=== PATIENT | female | born 1965 | race Caucasian/White ===

== ENCOUNTER 2016-12-05 04:17 | Inpatient (IN) | payer BC ==
[~2016-12-05] VITALS: Ht 172.7 cm; Wt 72.8 kg
[2016-12-05] VITALS (8 sets, daily range): BP systolic 95–118; BP diastolic 57–73; PULSE 74–83; RESP 15–28; TEMP 97.7–98.5; O2SAT 93–98; Ht 172.7 cm; Wt 72.8 kg
[~2016-12-05 04:17] MED LIST: ACYC-1 PO; AMOX-351 PO; BUPR-51 PO; CITA40TA14 PO; ESTR-29 PO; ESZO3TAB39 PO; LACT1CAP73 PO; MELA3TAB30 PO; RIZA10TA16 PO; ZOLP-109 PO
--- NOTE | 2016-12-05 04:17 | NUR ---
[facility] BROUGHT 3 EMPTY PILL BOTTLES WITH THE THAT WERE IN THE HOME BY THE PT ACCORDING TO THE SISTER WHO WAS THE ONE TO FIND HER AND CALL 911. ESZOPICLONE 1MG BOTTLE THAT IS PRESCRIBED TO HER SPOUSE, MADELINE ORTEGA ZOLPIDEM 10MG BOTTLE PRESCRIBED TO HER ADVIL PM OTC BOTTLE UNKNOWN AMTS OF MEDS TAKE WHEN ASKED, PT STATES "I DIDN'T TAKE THAT MANY"
[2016-12-05] MEDS ORDERED: NORMAL SALINE 1,000 ML IV ONE (04:21)
--- OUTSIDE RECORDS SUMMARY | 2016-12-05 04:22 | XMS REPORT | Continuity of Care Document ---
Author Author [facility] Organization [facility] Address Unknown Phone Unavailable Allergies Medications Problems Procedures Results Encounters ACCT No. Visit Date/Time Discharge Status Pt. Type Provider Facility Loc./Unit Complaint [id number] 11/01/2013 14:24:00 11/01/2013 23 :59:59 CLS Outpatient [id number] 07/02/2013 13:28:00 07/02/2013 23 :59:59 CLS Outpatient [id number] 05/29/2013 08:36:00 05/29/2013 23 :59:59 CLS Outpatient
--- OUTSIDE RECORDS SUMMARY | 2016-12-05 04:22 | XMS REPORT | Referral Summary ---
Author Author [facility] Organization [facility] Address Unknown Phone Unavailable Care Team Providers Care Food Quality Technician Name Role Phone Fco Griffin Primary Care Physician [phone] Encounter Date(s): 05/10/16 - 05/10/16 [facility] [address] [place] [address] Discharge Diagnosis: Insomnia Discharge Diagnosis: Dyslipidemia Discharge Diagnosis: Well adult exam Discharge Diagnosis: Depression Discharge Diagnosis: Post menopausal syndrome Discharge Disposition: 01-Home or Self Care Attending Physician: Neha Christiansen APRN Admitting Physician: Neha Christiansen APRN Vital Signs Most recent to 1 oldest [Reference Range]: Temperature Tympanic 36.7 degC [36.6-38.1 degC] (05/10/16 3:58 PM) Peripheral Pulse 84 bpm Rate [60-100 bpm] (05/10/16 3:58 PM) Blood Pressure 126/84 mmHg [90-140/60-90 mmHg] (05/10/16 3:58 PM) Problem List Condition Effective Dates Status Health Status Informant heavy 2008 - 07/22/14 Resolved flow(Confirmed) Depression(Confirmed Active ) Post menopausal Active syndrome(Confirmed) Seasonal Active allergies(Confirmed) Allergies, Adverse Reactions, Alerts Substance Reaction Severity Status codeine Nausea/Vomiting Active Medications acyclovir 400 mg oral tablet See Instructions, TAKE 1 TAB PO DAILY, # 30 Each, 0 Refill(s), Pharmacy: [facility] [id number], TAKE 1 TAB PO DAILY Start Date: 04/26/16 Status: Ordered Ambien 10 mg oral tablet 10 mg 1 tabs, Oral, Bedtime (once a day), as needed for sleep, [facility] NEEDS [facility] PRIOR TO ADDITIONAL FILLS, # 30 tabs, 0 Refill(s) Start Date: 04/26/16 Status: Ordered buPROPion 150 mg/24 hours (XL) oral tablet, extended release See Instructions, TAKE 1 TABLET BY MOUTH EVERY DAY, # 30 tabs, 5 Refill(s), eRx : [facility] [id number], TAKE 1 TABLET BY MOUTH EVERY DAY Start Date: 01/13/16 Status: Ordered citalopram 40 mg oral tablet See Instructions, TAKE 1 TABLET BY MOUTH DAILY, # 30 tabs, 5 Refill(s), eRx: [facility] [id number], TAKE 1 TABLET BY MOUTH DAILY Start Date: 01/01/16 Status: Ordered esterified estrogens-methylTESTOSTERone 1.25 mg-2.5 mg oral tablet 1 tabs, Oral, Daily, [facility], # 90 tabs, 1 Refill(s) Start Date: 03/22/16 Status: Ordered eszopiclone 3 mg oral tablet 3 mg 1 tabs, Oral, Bedtime (once a day), as needed for insomnia, [facility], # 15 tabs, 0 Refill(s) Start Date: 04/26/16 Status: Ordered rizatriptan 10 mg oral tablet See Instructions, TAKE 1 TABLET BY MOUTH AT ONSET MAY REPEAT AT 2 HOURS INTERVALS. DO NOT EXCEED 30MG IN 24 HOURS, # 15 tabs, eRx: [facility] [id number], TAKE 1 TABLET BY MOUTH AT ONSET MAY REPEAT AT 2 HOURS INTERVALS. DO NOT EXCEED 30MG IN 24 HOURS Start Date: 03/23/16 Status: Ordered Results No data available for this section Immunizations Vaccine Date Refusal Reason tetanus/diphth/pertuss (Tdap) adult/adol 11/13/15 influenza virus vaccine, inactivated 05/10/16 influenza virus vaccine, live 05/19/12 tetanus/diphtheria/pertussis, acel(Tdap) 12/31/11 Procedures Procedure Date Related Diagnosis Body Site Colonoscopy and biopsy of colon1 11/08/14 Appendectomy 1996 Abdominal hysterectomy 1Diverticulosis and external hemorrhoids present. Random biopsies negative for colitis. 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 Encouraged healthy diet and exercise more days of the week than not. Mammogram every 1-2 years. Discussed current Pap smear/pelvic exam guidelines. Patient not interested in pelvic exam today. No further Pap smears needed.. Labs: Fasting lipids and chemistrylater this week. Immunizations reviewed. Flu shot yearly. Given today by nursing. Colonoscopydue: 2024. DEXA scandue: Age 61. Recommend yearly wellness exams. Continue yearly skin surveys. We discussed ways to decrease stretching and neck strain which may decrease her headaches. Follow-up yearly or sooner as medical needs arise. 2.Dyslipidemia Encourage healthy eating and exercise. 3.Post menopausal syndrome Patient can try to decrease herhormone supplement to half a tablet daily. If she notes increased hot flashes/night sweats to go back to prior dosing. 4.Depression Currently well controlled with current regimen. Continue same. Insomnia Currently well controlled with current regimen. Continue same. Did discuss try to decrease her Ambien use to half a tablet or 5 nights per week. She is fairly hesitant to do this. Need for influenza vaccination
--- OUTSIDE RECORDS SUMMARY | 2016-12-05 04:22 | XMS REPORT | Continuity of Care Document ---
Author Author [facility] Organization [facility] Address Unknown Phone Unavailable Support Name Relationship Address Phone KAI ROMERO MD Caregiver [address] [place] [address] [place] [address] Unavailable CLARK PERSON MD Caregiver [address] [place] [id number] Unavailable CASEY WRIGHT MD Caregiver [address] [facility] [place] [address] Unavailable HONEY VO MD Caregiver [address] [place] [address] Unavailable MADELINE ORTEAG Next Of Kin [address] [place], [place] [id number] Insurance Providers Guarantor Hill Ortega Address [address] [place] [address] Email DENIED/NO TO PORTAL Payer [facility] Policy Number [id number] Subscriber's Name Hill Ortega Relationship 18 Self Group Number [id number] Advance Directives Directive Response Recorded Date/Time Ordered Resuscitation Status Full Code 05/16/16 12:50am Resuscitation Documents on File No 05/16/16 1:59am DPOA for Healthcare Only Yes 05/16/16 12:07pm Living Will No 05/16/16 1:59am Problems Active Problems Medical Problem Onset Date Status Alcohol use disorder, severe, dependence Unknown Chronic Depression Unknown Chronic Hypokalemia Unknown Resolved Major depression, recurrent Unknown Metabolic encephalopathy Unknown Overdose Unknown Acute Puncture wound of foot Unknown Acute Toxic encephalopathy Unknown Resolved Past Problems Medical Problem Onset Date Intentional overdose of drug in tablet form Unknown Medications Current Home Medications Medication Dose Units Route Directions Days Qty Instructions Start Date Acyclovir 400 Mg Tablet 400 Mg Oral Daily 08/09/08 Amoxicillin/Potassium Clav (Augmentin 875-125 Tablet) 1 Each Tablet 1 Tab Oral Twice A Day 7 Days TAKE WITH MEALS 11/13/15 Bupropion Hcl (Bupropion Xl) 150 Mg Tab.er.24h 150 Mg Oral Daily 10/24/14 Citalopram Hydrobromide (Celexa) 40 Mg Tablet 40 Mg Oral Daily Estrogen,Pema/Me-Testosterone (Estrogen-Methyltestosterone Tb) 1 Each Tablet 1 Tab Oral Daily 10/24/14 Eszopiclone Unknown Strength Tablet 3 Mg Oral Bedtime as needed for Insomnia 05/16/16 Lactobacillus Combination No.4 (Probiotic) 1 Each Capsule 1 Cap Oral Daily 11/08/14 Melatonin 3 Mg Tablet 1 Tab Oral Bedtime 30 Tablet 05/16/16 Rizatriptan Benzoate (Maxalt) 10 Mg Tablet 10 Mg Oral As Directed as needed for Migraine Headache 08/09/08 Zolpidem Tartrate (Ambien) 10 Mg Tablet 10 Mg Oral Bedtime Social History Social History Problem Response Recorded Date/Time Onset Date Status Reason for Hospitalization Overdose of multiple medications 05/17/2016 4: 05pm Not Applicable Not Applicable Chewing Tobacco Status No 05/16/2016 12:02am Not Applicable Not Applicable Hx Substance Use No 05/16/2016 12:02am Not Applicable Not Applicable Hx Alcohol Use Yes 05/16/2016 12:02am Not Applicable Not Applicable Has the pt used tobacco in the last 12 months No 05/16/2016 2:12am Not Applicable Not Applicable Query Response Start Date Stop Date Smoking Status Current some day smoker Hospital Discharge Instructions Instructions: Care Instructions: I was in the hospital because (patient own words): Pt unable to be aroused Discharge Diet: Regular Discharge Activity: As tolerated Follow Up Appointments: Dr Sinha to follow at [place] Pending Lab / Results: No Pending Lab Wound/Incision Care: n/a Pain Management/Treatment: n/a Expected Signs/Symptoms: Improvement to psychiatric state Notify Physician If: Fevers, chills, nausea, vomiting During Business Hours:: N/A - going to inpatient treatment After Business Hours:: n/a - going to inpatient treatment Condition at time of discharge: Good Plan of Care Discharge Date 05/17/16 5:00pm Disposition 65 TO PSYCH HOSP/UNIT Instructions/Education Provided DI for Suicidal Ideation-Adult Prescriptions See Medication Section Care Plan and Goals See Discharge Instructions Section Functional Status Query Response Date Recorded Mobility Status Ambulatory May 17, 2016 4:05pm Assistive Devices None May 17, 2016 4:05pm Activity Limitations Weakness May 17, 2016 4:05pm Feeding Ability Independent May 17, 2016 4:05pm Toileting Ability Independent May 17, 2016 4:05pm Grooming Ability Independent May 17, 2016 4:05pm Dressing Ability Independent May 17, 2016 4:05pm Driving Ability Independent May 17, 2016 4:05pm Housework Ability Independent May 17, 2016 4:05pm Meal Preparation Ability Independent May 17, 2016 4:05pm Stair Climbing Ability Independent May 17, 2016 4:05pm Ability to complete ADL's impeded by Change in Behavior May 17, 2016 4:05pm Cognitive/Perceptual Impairments Acute confusion May 17, 2016 4:05pm Allergies, Adverse Reactions, Alerts Allergen Type Severity Reaction Status Last Updated Codeine Adverse Reaction Mild N/V Active 05/16/16 Immunizations Query Response on File Recorded Date/Time Hx Influenza Vaccination Y April 2016 05/16/16 2:12am Hx Pneumococcal Vaccination No 05/16/16 2:12am Hx Influenza Vaccination Y April 2016 05/16/16 2:12am Tdap Vaccine Hx 11/13/15 11/13/15 10:48pm Vital Signs Acute Vital Signs Vital Response Date/Time Temperature (Fahrenheit) 98.7 deg F (96.8 - 99.1) 05/17/2016 3:12pm Temperature (Calculated Celsius) 37.55404 degrees C (36.0 - 37.3) 05/17/2016 3:12pm Pulse Rate (adult) 60 bpm (60 - 100) 05/17/2016 3:12pm Respiratory Rate 20 breaths/min (10 - 20) 05/17/2016 3:12pm O2 Sat by Pulse Oximetry 97 % (90 - 100) 05/17/2016 3:12pm Oxygen Delivery Method Nasal Cannula 05/16/2016 5:01pm Oxygen Delivery Method Room Air 05/17/2016 3:12pm Oxygen Flow Rate 1.00 L/min 05/16/2016 6:00am Blood Pressure 146/92 mm Hg 05/17/2016 3:12pm Blood Pressure Source Automatic Cuff 05/17/2016 3:12pm Height (Feet) 5 feet 05/17/2016 3:36pm Height (Inches) 8.00 inches 05/17/2016 3:36pm Weight (Kilograms) 70.700 kg 05/17/2016 9:49am Body Mass Index (BMI) 25.7 05/16/2016 1:59am Results Laboratory Results Test Name Result Units Flags Reference Collection Date/Time Result Date/ Time Comments White Blood Count 8.4 T/MM3 4.5-11.0 05/17/2016 12:45pm 05/17/2016 1: 17pm Red Blood Count 5.03 M/MM3 4.00-5.20 05/17/2016 12:45pm 05/17/2016 1: 17pm Hemoglobin 16.0 GM/DL D 12-16 05/17/2016 12:45pm 05/17/2016 1:17pm Hematocrit 46.9 % H 36-46 05/17/2016 12:45pm 05/17/2016 1:17pm Mean Corpuscular Volume 93.2 UM3 80-100 05/17/2016 12:45pm 05/17/2016 1 :17pm Mean Corpuscular Hemoglobin 31.8 UUG 26-34 05/17/2016 12:45pm 2015 1:17pm Mean Corpuscular Hemoglobin Concent 34.1 GM/DL 31-37 05/17/2016 12:45pm 05/17/2016 1:17pm RDW Standard Deviation 43.2 FL 36.9-50.2 05/17/2016 12:45pm 05/17/2016 1:17pm Platelet Count 199 T/MM3 130-400 05/17/2016 12:45pm 05/17/2016 1:17pm Mean Platelet Volume 10.8 UM3 9.4-12.4 05/17/2016 12:45pm 05/17/2016 1: 17pm Neutrophils (%) (Auto) 76.0 % H 33-66 05/17/2016 12:45pm 05/17/2016 1: 17pm Lymphocytes (%) (Auto) 15.3 % L 23-45 05/17/2016 12:45pm 05/17/2016 1: 17pm Monocytes (%) (Auto) 6.9 % 0-9.0 05/17/2016 12:45pm 05/17/2016 1:17pm Eosinophils (%) (Auto) 1.3 % 0-4 05/17/2016 12:45pm 05/17/2016 1:17pm Basophils (%) (Auto) 0.4 % 0-2 05/17/2016 12:45pm 05/17/2016 1:17pm Immature Granulocyte % (Auto) 0.1 % 0.0-0.5 05/17/2016 12:45pm 2015 1:17pm Absolute Neutrophils (auto) 6.4 T/MM3 1.8-7.7 05/17/2016 12:45pm 2015 1:17pm Absolute Lymphocytes (auto) 1.3 T/MM3 1-4.8 05/17/2016 12:45pm 2015 1:17pm Absolute Monocytes (auto) 0.6 T/MM3 0-0.8 05/17/2016 12:45pm 2015 1:17pm Absolute Eosinophils (auto) 0.1 T/MM3 0-0.5 05/17/2016 12:45pm 2015 1:17pm Absolute Basophils (auto) 0.0 T/MM3 0-0.2 05/17/2016 12:45pm 2015 1:17pm Absolute Immature Granulocyte (auto 0.01 T/MM3 0.00-0.03 05/17/2016 12: 45pm 05/17/2016 1:17pm Icterus Index < 2 0-7 05/17/2016 12:45pm 05/17/2016 1:05pm Chemistry Specimen Hemolysis < 15 0-25 05/17/2016 12:45pm 05/17/2016 1:05pm 0-25: Specimen Exhibited No Hemolysis. Turbidity < 20 0-20 05/17/2016 12:45pm 05/17/2016 1:05pm Sodium Level 144 MEQ/L D 134-144 05/17/2016 12:45pm 05/17/2016 1:19pm Potassium Level 4.1 MEQ/L 3.6-5 05/17/2016 12:45pm 05/17/2016 1:05pm Chloride Level 107 MEQ/L 98-107 05/17/2016 12:45pm 05/17/2016 1:05pm Carbon Dioxide Level 20 MEQ/L L 22-30 05/17/2016 12:45pm 05/17/2016 1: 05pm Anion Gap 17 MEQ/L H 5-15 05/17/2016 12:45pm 05/17/2016 1:05pm Blood Urea Nitrogen 8.0 MG/DL 7-17 05/17/2016 12:45pm 05/17/2016 1: 05pm Creatinine 0.8 MG/DL 0.7-1.2 05/17/2016 12:45pm 05/17/2016 1:05pm BUN/Creatinine Ratio 10 RATIO 6-26 05/17/2016 12:45pm 05/17/2016 1: 05pm Glomerular Filtration Rate Calc 76 05/17/2016 12:45pm 05/17/2016 1: 05pm Glucose Level 108 MG/DL 65-110 05/17/2016 12:45pm 05/17/2016 1:05pm Calculated Osmolality 276 MOSM/KG 261-280 05/17/2016 12:45pm 2015 1:05pm Calcium Level 9.3 MG/DL 8.4-10.2 05/17/2016 12:45pm 05/17/2016 1:05pm Total Bilirubin 0.80 MG/DL 0.20-1.30 05/16/2016 12:02pm 05/16/2016 12: 23pm Alkaline Phosphatase 60 U/L 38-126 05/16/2016 12:02pm 05/16/2016 12: 23pm Total Protein 6.9 G/DL 6.3-8.2 05/16/2016 12:02pm 05/16/2016 12:23pm Albumin 4.1 G/DL 3.5-5.0 05/16/2016 12:02pm 05/16/2016 12:23pm Globulin 2.8 G/DL 2.4-3.6 05/16/2016 12:02pm 05/16/2016 12:23pm Albumin/Globulin Ratio 1.5 RATIO 1.1-2.2 05/16/2016 12:02pm 05/16/2016 12:23pm Aspartate Amino Transf (AST/SGOT) 24 U/L 14-36 05/16/2016 12:02pm 05/16 12:23pm Alanine Aminotransferase (ALT/SGPT) 37 U/L 9-52 05/16/2016 12:02pm 04/2016 12:23pm Acetaminophen Level < 10 UG/ML L 06-0605/15/2016 11:30pm 05/16/2016 12: 13am TOXIC <4 HR POST INGESTION: >150 MG/L; TOXIC <12 HR POST INGESTION: >50 MG/L Salicylates Level < 1.0 MG/DL L -05/15/2016 11:30pm 05/16/2016 12: 13am Alcohol, Quantitative <10 MG/DL <10 05/16/2016 12:02pm 05/16/2016 12: 23pm Thyroid Stimulating Hormone (TSH) 0.45 MIU/L L 0.47-4.68 05/16/2016 12: 02pm 05/16/2016 2:41pm Urine Collection Type STRAIGHT CATH 05/16/2016 12:12am 05/16/2016 12:20am Urine Color YELLOW YELLOW 05/16/2016 12:12am 05/16/2016 12:20am Urine Turbidity CLEAR CLEAR 05/16/2016 12:12am 05/16/2016 12:20am Urine Specific [place] <=1.005 L 1.015-1.025 05/16/2016 12:12am 2015 12:20am Urine pH 5.5 5.0-8.0 05/16/2016 12:12am 05/16/2016 12:20am Urine Leukocyte Esterase NEGATIVE NEGATIVE 05/16/2016 12:12am 2015 12:20am Urine Nitrite NEGATIVE NEGATIVE 05/16/2016 12:12am 05/16/2016 12: 20am Urine Protein NEGATIVE NEGATIVE 05/16/2016 12:12am 05/16/2016 12: 20am Urine Glucose (UA) NEGATIVE NEGATIVE 05/16/2016 12:12am 05/16/2016 12 :20am Urine Ketones NEGATIVE NEGATIVE 05/16/2016 12:12am 05/16/2016 12: 20am Urine Urobilinogen 0.2 EU/DL NORMAL 05/16/2016 12:12am 05/16/2016 12: 20am Urine Bilirubin NEGATIVE NEGATIVE 05/16/2016 12:12am 05/16/2016 12: 20am Urine Blood NEGATIVE NEGATIVE 05/16/2016 12:12am 05/16/2016 12:20am Urinalysis Comment MICROSCOPIC NOT IND. 05/16/2016 12:12am 2015 12:20am Glucometer 75 mg/dL 65-110 05/16/2016 12:06am 05/16/2016 12:25am Procedures No known history of procedures. Encounters Encounter Location Arrival/Admit Date Discharge/Depart Date Attending Provider Discharged Inpatient [facility] 05/16/16 12:46am 05/17/16 5:00pm KAI ROMERO MD
--- OUTSIDE RECORDS SUMMARY | 2016-12-05 04:22 | XMS REPORT | Continuity of Care Document ---
Author Author [facility] Organization [facility] Address Unknown Phone Unavailable Support Name Relationship Address Phone CLAY THORPE FACS, MD Caregiver [address] [place] [address] [place] [phone] HONEY VO MD Caregiver [address] [place] [address] [place] [phone] MADELINE ORTEGA Next Of Kin [address] [facility] [place] [address] Insurance Providers Payer Name Policy Number Subscriber Name Relationship [facility] [id number] Hill Ortega 18 Self Advance Directives Directive Response Recorded Date/Time Dr Horan Resuscitation Status Full Code 10/24/14 2:06pm Resuscitation Documents on File No 10/24/14 12:32pm Problems No known problems or medical conditions. Medications Medication Dose Route Sig Days/Qty Instructions Order Date Discontinued Date Status Acyclovir 400 Mg PO DAILY 08/09/08 Active Zolpidem Tartrate 10 Mg PO BEDTIME 08/09/08 Active Rizatriptan Benzoate 10 Mg PO DIRECTED PRN MIGRAINE HEADACHE 08/09 Active Bupropion HCl 150 Mg PO DAILY 10/24/14 Active Citalopram Hydrobromide 40 Mg PO DAILY 10/24/14 Active Estrogen,Pema/Me-Testosterone 1 Tab PO DAILY 10/24/14 Active Lactobacillus Combination No.4 1 Cap PO DAILY 11/08/14 Active Social History Social History Problem Response Recorded Date/Time Chewing Tobacco Status No 10/24/2014 12:28pm Hx Substance Use No 10/24/2014 12:28pm Hx Alcohol Use Y BEER 2 PER DAY 10/24/2014 12:28pm Has the pt used tobacco in the last 12 months No 10/24/2014 12:28pm Query Response Start Date Stop Date Smoking Status Never smoker Hospital Discharge Instructions No hospital discharge instructions. Plan of Care No plan of care. Functional Status No functional status results. Allergies, Adverse Reactions, Alerts Allergen Type Severity Reaction Status Last Updated Codeine Adverse Reaction Mild N/V Active 10/24/14 Immunizations Name Given Type Hx Influenza Vaccination No Historical Hx Pneumococcal Vaccination No Historical Hx Influenza Vaccination No Historical Vital Signs Acute Vital Signs Vital Response Date/Time Temperature (Fahrenheit) 97.3 deg F (96.8 - 99.1) Temperature (Calculated Celsius) 36.71396 degrees C (36.0 - 37.3) Temperature Source Temporal Pulse Rate (adult) 60 bpm (60 - 100) Respiratory Rate 18 breaths/min (10 - 20) O2 Sat by Pulse Oximetry 100 % (90 - 100) Oxygen Delivery Method Room Air Blood Pressure 122/76 mm Hg Blood Pressure Source Automatic Cuff Height 5 ft 4 in Weight 154 lb Body Mass Index 26.0 kg/m^2 Results Test Source Date Result Interp. Ref. Range Comments Basophils # (Auto) August 09, 2008 6:45am 0.1 T/MM3 N 0-0.2 COMMENT ADMIT AT 0600 Basophils (%) (Auto) August 09, 2008 6:45am 1.1 % N 0-2 COMMENT ADMIT AT 0600 Eosinophils # (Auto) August 09, 2008 6:45am 0.2 T/MM3 N 0-0.5 COMMENT ADMIT AT 0600 Eosinophils (%) (Auto) August 09, 2008 6:45am 3.4 % N 0-4 COMMENT ADMIT AT 0600 Hematocrit August 10, 2008 4:00pm 24.1 % L 36-46 Hemoglobin August 10, 2008 4:00pm 7.1 GM/DL L 12-16 Human Chorionic Gonadotropin, Qual August 09, 2008 6:45am Negative - Lymphocytes # (Auto) August 09, 2008 6:45am 2.0 T/MM3 N 1-4.8 COMMENT ADMIT AT 0600 Lymphocytes (%) (Auto) August 09, 2008 6:45am 35.5 % N 23-45 COMMENT ADMIT AT 0600 Mean Corpuscular Hemoglobin August 10, 2008 4:00pm 21.8 UUG L 26-34 Mean Corpuscular Hemoglobin Concent August 10, 2008 4:00pm 29.5 GM/DL L 31-37 Mean Corpuscular Volume August 10, 2008 4:00pm 74.2 UM3 L 80-100 Mean Platelet Volume August 10, 2008 4:00pm 10.0 UM3 N 7.4-10.4 Monocytes # (Auto) August 09, 2008 6:45am 0.7 T/MM3 N 0-0.8 COMMENT ADMIT AT 0600 Monocytes (%) (Auto) August 09, 2008 6:45am 12.1 % H 0-9.0 COMMENT ADMIT AT 0600 Neutrophils # (Auto) August 09, 2008 6:45am 2.6 T/MM3 N 1.8-7.7 COMMENT ADMIT AT 0600 Neutrophils (%) (Auto) August 09, 2008 6:45am 47.9 % N 33-66 COMMENT ADMIT AT 0600 Platelet Count August 10, 2008 4:00pm 160 T/MM3 N 130-400 RDW Standard Deviation August 10, 2008 4:00pm 49.9 FL N 36.9-50.2 Red Blood Count August 10, 2008 4:00pm 3.25 M/MM3 L 4.00-5.20 White Blood Count August 10, 2008 4:00pm 6.8 T/MM3 N 4.5-11.0 Procedures Procedure Status Date Provider(s) Colonoscopy with polypectomy and biopsy completed 11/08/14 CLAY THORPE MD, FACS, CWS Hemorrhoidectomy completed 11/08/14 CLAY THORPE MD, FACS, CWS
--- NOTE | 2016-12-05 04:25 | NUR ---
STATUS PT IS VERY SLEEPY BUT TRIES TO FOLLOW COMMANDS AND HELP STAFF WITH CHANGING INTO HOSPITAL GOWN AND POSITIONING. SAYS SHE KNOWS SHE IS IN [place], BUT SEVERAL TIMES SAYS "AM I HOME". SHE DENIES ANY PAIN. ASKED PT 3 TIMES IF SHE WAS TRYING TO HARM OR KILL HERSELF AND EACH TIME SHE SAID NO, SHE WAS JUST TRYING TO SLEEP
--- NOTE | 2016-12-05 04:34 | ERPDOC ---
Departure Disposition Decision Date: Dec 05, 2016 Disposition Decision Time: 05:13 Disposition: 02 TO [facility] Impression Impression Impression: Primary Impression: Overdose Encounter type: initial encounter Injury intent: undetermined intent Qualified Codes: T50.904A - Poisoning by unspecified drugs, medicaments and biological substances, undetermined, initial encounter Additional Impressions: Major depression, recurrent Active/Remission status: currently active Major depression episode severity: moderate Qualified Codes: F33.1 - Major depressive disorder, recurrent, moderate Alcohol use disorder, severe, dependence Severity: Moderate Condition: Stable Seen By: Physician only Referrals: HONEY VO MD (Family) Problems/Meds/Labs Reviewed?: Yes Medications reviewed and manag: Yes Follow up care ordered?: Yes Mental Status: Alert, Oriented HPI - Psychosocial General Stated Complaint: POSSIBLE OD Time Seen by MD: 04:21 Source: patient, family, police, EMS, EMS notes reviewed Exam Limitations: no limitations HPI - Psychosocial Initial Comments Patient is a 51-year-old female, prior history of hospitalization 05/23 for attempted suicide by taking zolpidem and Lunesta. Patient presents to the ER for possible overdose on zolpidem and Lunesta. Patient also has long history of alcohol abuse. Patient presents to the ER for evaluation of altered mental status somnolent, questionable sleeping pill overdose. Apparently patient got into fight with her marline, family has been unable to locate thinks she might have "left". Patient called sister and said that she just wanted to sleep and if anything happened to her it was her 's fault. They became concerned police were contacted and then EMS was called. Patient brought to the ER for evaluation on arrival patient is very somnolent but arousable and answers questions, when asked if she was trying to harm herself she states "no". Occurred At: home Allergies: Coded Allergies: codeine (Verified Adverse Reaction, Mild, N/V, 12/05/16) Past History Patient Surgical History hysterectomy Past Medical History Metabolic: hypercholesterolemia Psychological: alcohol abuse, depression, other (prior possible suicide attempt by pills, versus unintentional overdose) Surgical History General: appendix Reproductive/: hysterectomy Family History Family PMH: FOUND: other Vaccines Hx Influenza Vaccination: Yes (April 2016) Hx Pneumococcal Vaccination: No Social History Does patient use chewing tobac: No Second Hand Exposure: No Substance Use Type: does not use Alcohol Intake: daily Marital Status: Sexuality: male partner Housing: house Review of Systems Constitutional Constitutional: weakness, DENIES: appetite decrease, chills, dizziness, fever Eyes Vision: DENIES: double vision, loss of visual rdz ENMT Sinuses: DENIES: congestion Cardiovascular Cardiac: DENIES: chest pain, dyspnea on exertion Pulmonary Respiratory: DENIES: cough, dyspnea, sputum, tachypnea GI Upper Abdomen: DENIES: nausea, pain, vomiting Lower Abdomen: DENIES: constipation, diarrhea, pain General: DENIES: frequency, urgency Musculoskeletal General: DENIES: cramps, pain, weakness Integumentary Skin: DENIES: color change, itching, rash Neurological General: DENIES: change in strength, headache, numbness, weakness Psychiatric Psychiatric: depression, suicidal ideation/attempt, DENIES: nervousness Hematologic/Lymphatic Hematologic/Lymphatic: DENIES: anemia Physical Exam General General Nourishment: well nourished, well developed General Body Habitus: well groomed Vitals and Pain First Documented Vital Signs Date Time Temp Pulse Resp B/P Pulse Ox O2 Delivery O2 Flow Rate FiO2 12/05/16 04:17 97.9 69 14 100/71 95 Room Air Weight: Kilograms: Height (feet): 5 Height (inches): 8.00 Triage Pain Scale: RN VS reviewed by Provider: Yes Eyes (brief) Eyes Brief: found: EOMI, PERRL ENMT (brief) ENMT Brief: FOUND: mucosa moist, normal dentition, NOT FOUND: nasal erythema, pharnyx erythema, tonsillar deviation Neck (brief) Neck: NOT FOUND: adenopathy, spasm, tenderness Respiratory (brief) Respiratory: FOUND: clear all rdz, equal bilaterally, NOT FOUND: rales, wheezes Cardiovascular (brief) Cardiac: FOUND: regular rate, regular rhythm Capillary Refill: <2 sec Abdomen (brief) Abdominal Brief: FOUND: bowel normo active x4, soft, NOT FOUND: distended, tender Lymphatic (brief) Lymphatic Brief: NOT FOUND: adenopathy Musculoskeletal (brief) Musculoskeletal Brief: NOT FOUND: spasm, tenderness Integumentary (brief) Integumentary Brief: FOUND: dry, pink, warm, NOT FOUND: rash Neurologic (brief) Neurological Brief: FOUND: CN w/o gross def to obs, motor-no gross deficits, sensory-no gross deficits Psychiatric (brief) Psychiatric Brief: NOT FOUND: alert, oriented Differential Diagnoses Considering: Anxiety, Bipolar, Borderline PD, Delirium, Depression, Hypoglycemia, Alcohol Intoxication, Other Intoxication, Suicidal Attempt, Suicidal Gesture, Suicidal Ideation Progress Results/Orders Orders Procedure Category Date Status Time EKG EKG 12/05/16 Taken 04:21 Cmp - Comprehensive LAB 12/05/16 Complete Metabolic 04:21 Cbc W/Auto LAB 12/05/16 Complete Diff-Reflex Manual 04:21 Ethanol LAB 12/05/16 Complete 04:21 Magnesium LAB 12/05/16 Complete 04:21 Drug Screen LAB 12/05/16 Complete Urine-Test At [facility] [place] 04:21 Acetaminophen LAB 12/05/16 Complete 04:21 Salicylate LAB 12/05/16 Complete 04:21 Ua, Dip Wreflex LAB 12/05/16 Complete Microsc & Acute Care Physician 04:21 Lipase LAB 12/05/16 Complete 04:21 Iv Lock (Ed Only) EDM 12/05/16 Transmitted 04:21 Normal Saline (Normal PHA 12/05/16 Complete Saline Iv) 04:21 Nothing By Mouth (Ed EDM 12/05/16 Transmitted Only) 04:21 Suicide Precautions [facility]ST 12/05/16 In Process 04:43 Place In Facility As: ADMIT 12/05/16 Transmitted 05:20 Measure Intake And [facility] 12/05/16 In Process Output 05:20 Elevate Hob [facility] 12/05/16 In Process Measure Vital Signs [facility] 12/05/16 In Process 05:20 Urinary Catheter [facility] 12/05/16 In Process Insert/Manage 05:20 Monitor Pulse Oximetry [facility] 12/05/16 In Process 05:20 Manage Oxygen [facility] 12/05/16 In Process Administration 05:20 Incentive Spirometry RT 12/05/16 Logged 05:20 Manage Incentive [facility] 12/05/16 In Process Spirometer 05:20 Normal Saline (Normal PHA 12/05/16 Logged Saline Iv) 05:20 Heparin (Heparin PHA 12/05/16 Logged Sub-Q) 09:00 Npo: Nothing By Mouth DIET 12/05/16 Transmitted Breakfast Bedrest With Brp [facility] 12/05/16 In Process 05:20 Ondansetron Inj PHA 12/05/16 Logged (Zofran) 05:30 Catheter Needs [facility]ST 12/06/16 In Process Assessment 06:00 Oxygen, Continuous RT 12/05/16 Logged 05:20 Manage Incentive [facility]ST 12/05/16 In Process Spirometer 16:00 Incentive Spirometry RT 12/05/16 Logged 05:20 Lab Results Laboratory Tests Test 12/05/16 04:36 White Blood Count 5.5T/MM3 Red Blood Count 5.32M/MM3 Hemoglobin 16.5GM/DL Hematocrit 49.4% Mean Corpuscular Volume 92.9UM3 Mean Corpuscular Hemoglobin 31.0UUG Mean Corpuscular Hemoglobin Concent 33.4GM/DL RDW Standard Deviation 45.7FL Platelet Count 226T/MM3 Mean Platelet Volume 10.7UM3 Immature Granulocyte % (Auto) 0.2% Neutrophils (%) (Auto) 39.8% Lymphocytes (%) (Auto) 47.9% Monocytes (%) (Auto) 7.7% Eosinophils (%) (Auto) 3.5% Basophils (%) (Auto) 0.9% Absolute Immature Granulocyte (auto 0.01T/MM3 Absolute Neutrophils (auto) 2.2T/MM3 Absolute Lymphocytes (auto) 2.6T/MM3 Absolute Monocytes (auto) 0.4T/MM3 Absolute Eosinophils (auto) 0.2T/MM3 Absolute Basophils (auto) 0.1T/MM3 Urine Collection Type Voided-not cc-midstr Urine Color Yellow Urine Turbidity Clear Urine pH 5.5 Urine Specific [place] <=1.005 Urine Protein Negative Urine Glucose (UA) Negative Urine Ketones Negative Urine Blood Negative Urine Nitrite Negative Urine Bilirubin Negative Urine Urobilinogen 0.2EU/DL Urine Leukocyte Esterase Negative Urinalysis Comment Microscopic not ind. Turbidity < 20 Sodium Level 148MEQ/L Potassium Level 3.8MEQ/L Chloride Level 105MEQ/L Carbon Dioxide Level 25MEQ/L Anion Gap 18MEQ/L Blood Urea Nitrogen 4.0MG/DL Creatinine 0.8MG/DL Glomerular Filtration Rate Calc 76 BUN/Creatinine Ratio 5RATIO Glucose Level 80MG/DL Calculated Osmolality 280MOSM/KG Calcium Level 9.2MG/DL Magnesium Level 2.3MG/DL Total Bilirubin 0.70MG/DL Icterus Index < 2 Aspartate Amino Transf (AST/SGOT) 37U/L Alanine Aminotransferase (ALT/SGPT) 48U/L Alkaline Phosphatase 66U/L Total Protein 8.0G/DL Albumin 4.8G/DL Globulin 3.2G/DL Albumin/Globulin Ratio 1.5RATIO Lipase 107U/L Chemistry Specimen Hemolysis < 15 Salicylates Level < 1.0MG/DL Urine Opiates Screen NegativeNG/ML Urine Oxycodone Screen NegativeNG/ML Urine Methadone Screen NegativeNG/ML Urine Propoxyphene Screen NegativeNG/ML Acetaminophen Level < 10UG/ML Urine Barbiturates Screen NegativeNG/ML Urine Tricyclic Antidepressants NegativeNG/ML Urine Phencyclidine Screen NegativeNG/ML Urine Amphetamines Screen NegativeNG/ML Urine Methamphetamines Screen NegativeNG/ML Urine Benzodiazepines Screen NegativeNG/ML Urine Cocaine Screen NegativeNG/ML Urine Cannabinoids Screen NegativeNG/ML Alcohol, Quantitative 177MG/DL Medications Current ED Medications Sodium Chloride 1,000 ml @ 1,000 mls/hr Q1H ONCE IV Last administered on t 04:49; Start 12/05/16 at 04:21; Stop 12/05/16 at 05:20; Status DC Sodium Chloride (Normal Saline IV) 1,000 ml @ 100 mls/hr Q10H IV ; Start at 05:20; Status UNV Heparin Sodium (Porcine) (Heparin Sub-Q) 5,000 unit Q8HR SQ ; Start 12/05/16 at 09:00; Status UNV Ondansetron HCl (Zofran) 4 mg Q6H PRN IV NAUSEA; Start 12/05/16 at 05:30; Status UNV Progress Progress Discussed case with Dr. Nugent, we'll admit to the CCU suicide precautions intoxication possible overdose encephalopathy, patient will receive psych evaluation when appropriate EKG EKG : Rate: 60-100 Rhythm: sinus Priddy: normal QRS: normal Intervals: normal ST/T: non-specific changes Interpreted by: signing physician ANDRA CHARLES MD Dec 05, 2016 04:34
--- NOTE | 2016-12-05 04:40 | NUR ---
ST CATH FEM CATH USED TO OBTAIN URINE SPEC FOR UA AND UDS PT COOPERATIVE WITH PROCEDURE CARLINE CARE PROVIDED AND PT HELPED WITH GETTING BOTTOMS BACK ON
[2016-12-05 04:41] LABS: BASOPHILS # (AUTO) 0.1 T/MM3 (0-0.2); BASOPHILS % (AUTO) 0.9 % (0-2); EOSINOPHILS # (AUTO) 0.2 T/MM3 (0-0.5); EOSINOPHILS % (AUTO) 3.5 % (0-4); HCT - HEMATOCRIT 49.4 % (36-46); HGB - HEMOGLOBIN 16.5 GM/DL (12-16); IMMATURE GRANULOCYTE # (AUTO) 0.01 T/MM3 (0.00-0.03); IMMATURE GRANULOCYTE % (AUTO) 0.2 % (0.0-0.5); LYMPHOCYTES # (AUTO) 2.6 T/MM3 (1-4.8); LYMPHOCYTES % (AUTO) 47.9 % (23-45); MEAN CORPUSCULAR HGB CONC(MCHC 33.4 GM/DL (31-37); MEAN CORPUSCULAR VOLUME 92.9 UM3 (80-100); MEAN PLATELET VOLUME 10.7 UM3 (9.4-12.4); MONOCYTES # (AUTO) 0.4 T/MM3 (0-0.8); MONOCYTES % (AUTO) 7.7 % (0-9.0); NEUTROPHILS #(AUTO)-ABSOLUTE 2.2 T/MM3 (1.8-7.7); NEUTROPHILS % (AUTO) 39.8 % (33-66); RED BLOOD COUNT 5.32 M/MM3 (4.00-5.20); WBC - WHITE BLOOD COUNT 5.5 T/MM3 (4.5-11.0)
--- NOTE | 2016-12-05 04:49 | NUR ---
IV FLUID #1 IV 1000CC NS STARTED AT 999CC/HR IV SITE WITHOUT REDNESS OR SWELLING
[2016-12-05 04:54] LABS: BLOOD, URINE NEGATIVE (NEGATIVE); COLOR,URINE YELLOW (YELLOW); LEUKOCYTE ESTERASE ,URINE NEGATIVE (NEGATIVE); NITRITE,URINE NEGATIVE (NEGATIVE); UROBILINOGEN,URINE 0.2 EU/DL (NORMAL)
[2016-12-05 04:58] LABS: ACETAMINOPHEN < 10 UG/ML (10-30); ALBUMIN 4.8 G/DL (3.5-5.0); ALBUMIN/GLOBULIN RATIO 1.5 RATIO (1.1-2.2); ALKALINE PHOSPHATASE 66 U/L (38-126); ALT (SGPT) 48 U/L (9-52); ANION GAP 18 MEQ/L (5-15); AST (SGOT) 37 U/L (14-36); BUN/CREATININE RATIO 5 RATIO (6-26); CALCIUM 9.2 MG/DL (8.4-10.2); CHLORIDE 105 MEQ/L (98-107); CO2 - CARBON DIOXIDE 25 MEQ/L (22-30); CREATININE 0.8 MG/DL (0.7-1.2); ETHANOL 177 MG/DL (<10); GLOMERULAR FILTRATION RATE 76; GLUCOSE 80 MG/DL (65-110); MAGNESIUM 2.3 MG/DL (1.6-2.3); POTASSIUM 3.8 MEQ/L (3.6-5); SALICYLATE < 1.0 MG/DL (2-20); SODIUM 148 MEQ/L (134-144)
[2016-12-05 05:05] LABS: AMPHETAMINE SCREEN,URINE NEGATIVE; BARBITURATE SCREEN,URINE NEGATIVE; METHAMPHETAMINE SCREEN, URINE NEGATIVE
[2016-12-05 05:06] LABS: BENZODIAZEPINES SCREEN,URINE NEGATIVE; CANNABINOID SCREEN,URINE NEGATIVE; COCAINE SCREEN,URINE NEGATIVE; METHADONE SCREEN, URINE NEGATIVE; OPIATE SCREEN,URINE NEGATIVE; PHENCYCLIDINE SCREEN,URINE NEGATIVE; TRICYCLIC ANTIDEPRESSANT,URINE NEGATIVE
[2016-12-05] MEDS ORDERED: IBUP1TAB79 PO (05:06)
--- OUTSIDE RECORDS SUMMARY | 2016-12-05 05:09 | XMS REPORT | Continuity of Care Document ---
Author Author [facility] Organization [facility] Address Unknown Phone Unavailable Support Name Relationship Address Phone CLAY THORPE FACS, MD Caregiver [address] [place] [address] [place] [phone] HONEY VO MD Caregiver [address] [place] [address] [place] [phone] MADELINE ORTEGA Next Of Kin [address] [place] [address] Insurance Providers Payer Name Policy Number Subscriber Name Relationship [facility] [id number] Hill Ortega 19 Self Advance Directives Directive [...] F (96.8 - 99.1) Temperature (Calculated Celsius) [phone] degrees C (36.0 - 37.3) Temperature Source [...]
--- OUTSIDE RECORDS SUMMARY | 2016-12-05 05:09 | XMS REPORT | Continuity of Care Document ---
Author Author [facility] Organization [facility] Address Unknown Phone Unavailable Allergies Medications Problems Procedures Results Encounters ACCT No. Visit Date/Time Discharge Status Pt. Type Provider Facility Loc./Unit Complaint [id number] 11/01/2013 14:24:00 11/01/2013 23 :59:59 CLS Outpatient [id number] 07/02/2013 13:28:00 07/02/2013 23 :59:59 CLS Outpatient [id number] 05/29/2013 08:36:00 05/29/2013 23 :59:59 CLS Outpatient
[2016-12-05 05:11] LABS: LIPASE 107 U/L (23-300)
[2016-12-05] MEDS ORDERED: NORMAL SALINE 1,000 ML IV SCH (05:20)
[2016-12-05] MEDS ORDERED: ONDANSETRON 4mg/2ml INJECTION IV PRN (05:30)
--- NOTE | 2016-12-05 05:31 | NUR ---
REPORT REPORT CALLED TO SUSAN ALLRED IN CCU
--- NOTE | 2016-12-05 05:40 | NUR ---
ADMIT PT TAKEN TO CCU ROOM 1 PER CART ESCORTED BY 2 RN'S PT FAMILY IN [facility], AWARE OF PT STATUS SISTER HAS PT'S CELL PHONE
--- NOTE | 2016-12-05 05:40 | NUR ---
ADMIT TO CCU-1 PER CART FROM ER. SLEEPY ABUT AWAKENS EASILY. ORIENTED BUT WANTS TO BE LEFT ALONE. TELEMED, DR SHAFFER, SAW PT. NO FAMILY HERE.
--- OUTSIDE RECORDS SUMMARY | 2016-12-05 05:51 | XMS REPORT | Continuity of Care Document ---
Author Author [facility] Organization [facility] Address Unknown Phone Unavailable Allergies Medications Problems Procedures Results Encounters ACCT No. Visit Date/Time Discharge Status Pt. Type Provider Facility Loc./Unit Complaint [id number] 11/01/2013 14:24:00 11/01/2013 23 :59:59 CLS Outpatient [id number] 07/02/2013 13:28:00 07/02/2013 23 :59:59 CLS Outpatient [id number] 05/29/2013 08:36:00 05/29/2013 23 :59:59 CLS Outpatient
--- OUTSIDE RECORDS SUMMARY | 2016-12-05 05:51 | XMS REPORT | Continuity of Care Document ---
Author Author [facility] Organization [facility] Address Unknown Phone Unavailable Support Name Relationship Address Phone CLAY THORPE FACS, MD Caregiver [address] [place] [address] [place] [phone] HONEY VO MD Caregiver [address] [place] [address] [place] [phone] MADELINE ORTEGA Next Of Kin [address] [facility] [place] [address] Insurance Providers Payer Name Policy Number Subscriber Name Relationship [facility] [id number] Hill Otrega 19 Self Advance Directives Directive Response Recorded [...] F (96.8 - 99.1) Temperature (Calculated Celsius) 36.50008 degrees C (36.0 - 37.3) Temperature Source [...]
--- NOTE | 2016-12-05 06:04 | HPPDOC ---
ANA SHAFFER MD 12/05/16 0559: HPI - Adult Date DATE: 12/05/16 TIME: 05:55 General Chief Complaint: altered History of Present Illness This is a 51-year-old female with a known history of depression. The patient has a long-standing history of alcohol abuse. The patient apparently was last admitted in May 2016 for a overdose of Ambien and/or Lunesta. The patient apparently got into an argument with her . He walked out. The sister contact the patient later on and found that she was less responsive. Prieto Howard was activated and evaluated the patient and activated EMS. The patient was transported to the emergency department for evaluation. It is not clear the exact time the patient adjusted the medication, but most likely less than 3 hours prior to arrival. The patient apparently has access to Lunesta and Ambien. There is a chance the patient took up to 10 tablets of Ambien and 5 tablets of Lunesta. The patient has been drinking today. In the emergency department the patients assessment was unremarkable. The patient is to be admitted to the ICU for medical stabilization prior to assessing need for psychiatric placement. Past Medical History Past Medical History depression Surgical History Patient's Surgical History: hysterectomy Current Medications Home Meds Reported Medications Melatonin (Melatonin) 3 Mg Tablet, 3 MG PO HS Y for INSOMNIA 12/05/16 Citalopram Hydrobromide (Citalopram HBr) 40 Mg Tablet, 40 MG PO DAILY 12/05/16 Estrogen,Pema/Me-Testosterone (Eemt Ds 1.25-2.5 mg Tablet) 1 Tab Tablet, 1 TAB PO DAILY 12/05/16 Acyclovir (Acyclovir) 400 Mg Tablet, 400 MG PO DAILY 12/05/16 Zolpidem Tartrate (Zolpidem Tartrate) 10 Mg Tablet, 10 MG PO HS Y for INSOMNIA 12/05/16 Rizatriptan Benzoate (Rizatriptan) 10 Mg Tablet, 10 MG PO TID Y for MIGRAINE HEADACHE 12/05/16 Eszopiclone (Eszopiclone) 3 Mg Tablet, 3 MG PO HS Y for INSOMNIA 12/05/16 Ibuprofen/Diphenhydramine Cit (Advil Pm Caplet) 1 Each Tablet, 1 TAB PO HS Y for INSOMNIA 12/05/16 Lactobacillus Combination No.4 (Probiotic) 1 Each Capsule, 1 CAP PO DAILY 11/08/14 Bupropion HCl (Bupropion Xl) 150 Mg Tab.er.24h, 150 MG PO DAILY 10/24/14 Allergies: Coded Allergies: codeine (Verified Adverse Reaction, Mild, N/V, 12/05/16) Family History Family History: states there is a strong family hx of depression Social History Smoking Status: Unknown if ever smoked Does patient use chewing tobac: No Second Hand Exposure: No Substance Use Type: does not use Alcohol Intake: daily Marital Status: Sexuality: male partner Housing: house Review of Systems All Other Systems All Other Systems: Reviewed (remainder of 10-point ROS Neg.) Comments The patient is acutely intoxicated. She is declining the opportunity to discuss what occurred with me tonight. All information obtained by information provided by the ER provider. In review of old records. In discussing with nursing. Physical Exam General General Nourishment: well nourished, well developed, apparent age, adult General Body Habitus: disheveled Vital Signs Vital Signs Date Time Temp Pulse Resp B/P Pulse Ox O2 Delivery O2 Flow Rate FiO2 12/05/16 05:40 97.9 74 16 111/67 99 Room Air Height (Feet): 5 Height (Inches): 8.00 Telemetry Rhythm: Sinus Rhythm Eyes Brief: FOUND: EOMI, PERRL, papilledema, NOT FOUND: other, scleral icterus , trauma Neck Brief: FOUND: midline, NOT FOUND: JVD, nuchal rigidity, other, spasm, tenderness, tracheal deviation Respiratory Brief: FOUND: clear all rdz, equal bilaterally, symmetrical, NOT FOUND: other, rales, spasm, tenderness, wheezes Cardiovascular (brief) Cardiac Brief: FOUND: regular rate, regular rhythm, NOT FOUND: click, gallop, murmur, other, pedal edema, peripheral edema, rub Capillary Refill: <2 sec Abdomen (brief) Abdominal Brief: FOUND: BS normo active x4, soft, NOT FOUND: distended, tender Musculoskeletal (brief) Musculoskeletal Brief: NOT FOUND: deformity, extremities move equally, loss of motion, other, spasm, tenderness Integumentary (brief) Integumentary Brief: FOUND: dry, pink, warm Neurologic (brief) Comments Patient is somnolent, no focal deficit identified Neurologic RN Documented GCS Eye Opening: (2)To Pain Verbal: (4)Confused Motor: (5)Localizes to Pain Total: Psychiatric (brief) NOT FOUND: alert, attentive, normal affect, oriented, other Laboratory Laboratory Tests Test 12/05/16 04:36 White Blood Count 5.5T/MM3 Red Blood Count 5.32M/MM3 Hemoglobin 16.5GM/DL Hematocrit 49.4% Mean Corpuscular Volume 92.9UM3 Mean Corpuscular Hemoglobin 31.0UUG Mean Corpuscular Hemoglobin Concent 33.4GM/DL RDW Standard Deviation 45.7FL Platelet Count 226T/MM3 Mean Platelet Volume 10.7UM3 Immature Granulocyte % (Auto) 0.2% Neutrophils (%) (Auto) 39.8% Lymphocytes (%) (Auto) 47.9% Monocytes (%) (Auto) 7.7% Eosinophils (%) (Auto) 3.5% Basophils (%) (Auto) 0.9% Absolute Immature Granulocyte (auto 0.01T/MM3 Absolute Neutrophils (auto) 2.2T/MM3 Absolute Lymphocytes (auto) 2.6T/MM3 Absolute Monocytes (auto) 0.4T/MM3 Absolute Eosinophils (auto) 0.2T/MM3 Absolute Basophils (auto) 0.1T/MM3 Urine Collection Type Voided-not cc-midstr Urine Color Yellow Urine Turbidity Clear Urine pH 5.5 Urine Specific [place] <=1.005 Urine Protein Negative Urine Glucose (UA) Negative Urine Ketones Negative Urine Blood Negative Urine Nitrite Negative Urine Bilirubin Negative Urine Urobilinogen 0.2EU/DL Urine Leukocyte Esterase Negative Urinalysis Comment Microscopic not ind. Turbidity < 20 Sodium Level 148MEQ/L Potassium Level 3.8MEQ/L Chloride Level 105MEQ/L Carbon Dioxide Level 25MEQ/L Anion Gap 18MEQ/L Blood Urea Nitrogen 4.0MG/DL Creatinine 0.8MG/DL Glomerular Filtration Rate Calc 76 BUN/Creatinine Ratio 5RATIO Glucose Level 80MG/DL Calculated Osmolality 280MOSM/KG Calcium Level 9.2MG/DL Magnesium Level 2.3MG/DL Total Bilirubin 0.70MG/DL Icterus Index < 2 Aspartate Amino Transf (AST/SGOT) 37U/L Alanine Aminotransferase (ALT/SGPT) 48U/L Alkaline Phosphatase 66U/L Total Protein 8.0G/DL Albumin 4.8G/DL Globulin 3.2G/DL Albumin/Globulin Ratio 1.5RATIO Lipase 107U/L Chemistry Specimen Hemolysis < 15 Salicylates Level < 1.0MG/DL Urine Opiates Screen NegativeNG/ML Urine Oxycodone Screen NegativeNG/ML Urine Methadone Screen NegativeNG/ML Urine Propoxyphene Screen NegativeNG/ML Acetaminophen Level < 10UG/ML Urine Barbiturates Screen NegativeNG/ML Urine Tricyclic Antidepressants NegativeNG/ML Urine Phencyclidine Screen NegativeNG/ML Urine Amphetamines Screen NegativeNG/ML Urine Methamphetamines Screen NegativeNG/ML Urine Benzodiazepines Screen NegativeNG/ML Urine Cocaine Screen NegativeNG/ML Urine Cannabinoids Screen NegativeNG/ML Alcohol, Quantitative 177MG/DL EKG sinus, QT and QRS acceptable Concerns For Adverse Events Patient took medications with alcohol with possible desire to harm herself after fight with . needs psychiatric eval prior to any disposition Assessment & Plan Assessment 1. Intentional ingestion of Ambien, Lunesta, and alcohol acute present on admission: In the emergency department the patient informed the provider that she was not suicidal. She is not reliable. Patient is admitted to the ICU for frequent neuro checks, IV fluids, suicidal precautions, and further assessment and monitoring of vital signs. 2. Acute alcohol intoxication present on admission: IV fluids, as patient called level declines, consider starting CIWA protocol. 3. Chronic depression with acute exacerbation present on admission: Well need to be screened by long term care social worker and her psychiatric counselor prior to disposition. 4. DVT prophylaxis: SCD 5. Gastric prophylaxis: PPI DVT Prophylaxis: SCD'S Code Status Full Code Hospital Course Summary Disclaimer The hospital course summary below is not to be considered part of the above Progress Note. ALAINA SANABRIA MD 12/05/16 1037: Past Medical History Current Medications Home Meds Reported Medications Melatonin (Melatonin) 3 Mg Tablet, 3 MG PO HS Y for INSOMNIA 12/05/16 Citalopram Hydrobromide (Citalopram HBr) 40 Mg Tablet, 40 MG PO DAILY 12/05/16 Estrogen,Pema/Me-Testosterone (Eemt Ds 1.25-2.5 mg Tablet) 1 Tab Tablet, 1 TAB PO DAILY 12/05/16 Acyclovir (Acyclovir) 400 Mg Tablet, 400 MG PO DAILY 12/05/16 Zolpidem Tartrate (Zolpidem Tartrate) 10 Mg Tablet, 10 MG PO HS Y for INSOMNIA 12/05/16 Rizatriptan Benzoate (Rizatriptan) 10 Mg Tablet, 10 MG PO TID Y for MIGRAINE HEADACHE 12/05/16 Eszopiclone (Eszopiclone) 3 Mg Tablet, 3 MG PO HS Y for INSOMNIA 12/05/16 Ibuprofen/Diphenhydramine Cit (Advil Pm Caplet) 1 Each Tablet, 1 TAB PO HS Y for INSOMNIA 12/05/16 Lactobacillus Combination No.4 (Probiotic) 1 Each Capsule, 1 CAP PO DAILY 11/08/14 Bupropion HCl (Bupropion Xl) 150 Mg Tab.er.24h, 150 MG PO DAILY 10/24/14 Allergies: Coded Allergies: codeine (Verified Adverse Reaction, Mild, N/V, 12/05/16) Assessment & Plan Hospital Course Summary Hospital Course Summary This is a 51-year-old female admitted to the hospital overnight for potential overdose on Ambien and Lunesta along with alcohol. Patient was seen and has no recollection of the event question. She does adamantly deny any suicidal ideations or attempts. When the events of last night were relayed to the patient, she states that her was in [place] and therefore couldn 't have walked out on her. She states that the last thing remembers is talking to her friend Clarisse and saying that they need to go out sometime soon. Once again she denied any suicidal, homicidal ideations. She denies any audio, visual or tactile hallucinations. She states that she sees a therapist in [place] and does not want to see anybody here. States that she takes her medications as prescribed. The plan is to have the patient evaluated by psychiatry and have disposition determined at that time. If they state that she is not a harm to self then we will discharge the patient home. ANA SHAFFER MD Dec 05, 2016 05:59 ALAINA SANABRIA MD Dec 05, 2016 10:37
--- NOTE | 2016-12-05 08:00 | NUR ---
STATUS AM assess done. Patient responds approp to questions. Found patient getting out of bed d/t needing to use the BR. Voided "a lot" and assisted back to bed and reorientation given to call light.
[2016-12-05] MEDS ORDERED: HEPARIN SUB-Q 5,000 unit/0.5ml vial SQ SCH (09:00)
[2016-12-05] MEDS ORDERED: PANTOPRAZOLE 40mg INJECTION IV SCH (09:00)
[2016-12-05] MEDS ORDERED: DULO20CA18 PO (09:09)
[2016-12-05] MEDS ORDERED: ESZO3TAB39 PO (09:09)
[2016-12-05] MEDS ORDERED: ESTR1TAB32 PO (09:14)
[2016-12-05] MEDS ORDERED: RIZA10TA26 PO (09:14)
[2016-12-05] MEDS ORDERED: CITA40TA6 PO (09:14)
[2016-12-05] MEDS ORDERED: ZOLP10TA6 PO (09:14)
[2016-12-05] MEDS ORDERED: ACYC400T PO (09:14)
[2016-12-05] MEDS ORDERED: MELA3TAB30 PO (09:15)
--- NOTE | 2016-12-05 10:00 | NUR ---
STATUS Dr. Eagle in to see patient. States medically stable.
--- NOTE | 2016-12-05 10:25 | NUR ---
STATUS Patient got out of bed. Had pulled off monitoring cords and pulled out iv. Had clothes and was getting dressed. States "I'm not staying." AMA paper signed.
--- NOTE | 2016-12-05 10:30 | NUR ---
DC Patient left hospital AMA. Dr. Eagle here and aware.
--- NOTE | 2016-12-05 10:41 | DSPDOC ---
General Date Date DATE: 12/05/16 TIME: 10:39 Attending Physician Karena George Admitting Physician Juan Fonseca MD Consulting Physician Admitting Diagnosis suicide attempt, encephalopathy, Discharge Diagnosis Depression. Laboratory Laboratory Tests Test 12/05/16 04:36 12/05/16 05:58 White Blood Count 5.5T/MM3 (4.5-11.0) Red Blood Count 5.32M/MM3 (4.00-5.20) Hemoglobin 16.5GM/DL (12-16) Hematocrit 49.4% (36-46) Mean Corpuscular Volume 92.9UM3 (80-100) Mean Corpuscular Hemoglobin 31.0UUG (26-34) Mean Corpuscular Hemoglobin Concent 33.4GM/DL (31-37) RDW Standard Deviation 45.7FL (36.9-50.2) Platelet Count 226T/MM3 (130-400) Mean Platelet Volume 10.7UM3 (9.4-12.4) Immature Granulocyte % (Auto) 0.2% (0.0-0.5) Neutrophils (%) (Auto) 39.8% (33-66) Lymphocytes (%) (Auto) 47.9% (23-45) Monocytes (%) (Auto) 7.7% (0-9.0) Eosinophils (%) (Auto) 3.5% (0-4) Basophils (%) (Auto) 0.9% (0-2) Absolute Immature Granulocyte (auto 0.01T/MM3 (0.00-0.03) Absolute Neutrophils (auto) 2.2T/MM3 (1.8-7.7) Absolute Lymphocytes (auto) 2.6T/MM3 (1-4.8) Absolute Monocytes (auto) 0.4T/MM3 (0-0.8) Absolute Eosinophils (auto) 0.2T/MM3 (0-0.5) Absolute Basophils (auto) 0.1T/MM3 (0-0.2) Urine Collection Type Voided-not cc-midstr Urine Color Yellow (YELLOW) Urine Turbidity Clear (CLEAR) Urine pH 5.5 (5.0-8.0) Urine Specific Murray <=1.005 (1.015-1.025) Urine Protein Negative (NEGATIVE) Urine Glucose (UA) Negative (NEGATIVE) Urine Ketones Negative (NEGATIVE) Urine Blood Negative (NEGATIVE) Urine Nitrite Negative (NEGATIVE) Urine Bilirubin Negative (NEGATIVE) Urine Urobilinogen 0.2EU/DL (NORMAL) Urine Leukocyte Esterase Negative (NEGATIVE) Urinalysis Comment Microscopic not ind. Turbidity < 20 (0-20) Sodium Level 148MEQ/L (134-144) Potassium Level 3.8MEQ/L (3.6-5) Chloride Level 105MEQ/L (98-107) Carbon Dioxide Level 25MEQ/L (22-30) Anion Gap 18MEQ/L (5-15) Blood Urea Nitrogen 4.0MG/DL (7-17) Creatinine 0.8MG/DL (0.7-1.2) Glomerular Filtration Rate Calc 76 BUN/Creatinine Ratio 5RATIO (6-26) Glucose Level 80MG/DL (65-110) Calculated Osmolality 280MOSM/KG (261-280) Calcium Level 9.2MG/DL (8.4-10.2) Magnesium Level 2.3MG/DL (1.6-2.3) Total Bilirubin 0.70MG/DL (0.20-1.30) Icterus Index < 2 (0-7) Aspartate Amino Transf (AST/SGOT) 37U/L (14-36) Alanine Aminotransferase (ALT/SGPT) 48U/L (9-52) Alkaline Phosphatase 66U/L (38-126) Total Protein 8.0G/DL (6.3-8.2) Albumin 4.8G/DL (3.5-5.0) Globulin 3.2G/DL (2.4-3.6) Albumin/Globulin Ratio 1.5RATIO (1.1-2.2) Lipase 107U/L (23-300) Chemistry Specimen Hemolysis < 15 (0-25) Salicylates Level < 1.0MG/DL (2-20) Urine Opiates Screen NegativeNG/ML Urine Oxycodone Screen NegativeNG/ML Urine Methadone Screen NegativeNG/ML Urine Propoxyphene Screen NegativeNG/ML Acetaminophen Level < 10UG/ML (10-30) Urine Barbiturates Screen NegativeNG/ML Urine Tricyclic Antidepressants NegativeNG/ML Urine Phencyclidine Screen NegativeNG/ML Urine Amphetamines Screen NegativeNG/ML Urine Methamphetamines Screen NegativeNG/ML Urine Benzodiazepines Screen NegativeNG/ML Urine Cocaine Screen NegativeNG/ML Urine Cannabinoids Screen NegativeNG/ML Alcohol, Quantitative 177MG/DL (<10) Lab Scanned Report REFERENCE [id number] History of Present Illness This is a 51-year-old female with a known history of depression. The patient has a long-standing history of alcohol abuse. The patient apparently was last admitted in May 2016 for a overdose of Ambien and/or Lunesta. The patient apparently got into an argument with her . He walked out. The sister contact the patient later on and found that she was less responsive. Pri[facility] Howard was activated and evaluated the patient and activated EMS. The patient was transported to the emergency department for evaluation. It is not clear the exact time the patient adjusted the medication, but most likely less than 3 hours prior to arrival. The patient apparently has access to Lunesta and Ambien. There is a chance the patient took up to 10 tablets of Ambien and 5 tablets of Lunesta. The patient has been drinking today. In the emergency department the patients assessment was unremarkable. The patient is to be admitted to the ICU for medical stabilization prior to assessing need for psychiatric placement. Hospital Course This is a 51-year-old female admitted to the hospital overnight for potential overdose on Ambien and Lunesta along with alcohol. Patient was seen and has no recollection of the event question. She does adamantly deny any suicidal ideations or attempts. When the events of last night were relayed to the patient, she states that her was in [place] and therefore couldn 't have walked out on her. She states that the last thing remembers is talking to her friend Clarisse and saying that they need to go out sometime soon. Once again she denied any suicidal, homicidal ideations. She denies any audio, visual or tactile hallucinations. She states that she sees a therapist in [place] and does not want to see anybody here. States that she takes her medications as prescribed. The plan is to have the patient evaluated by psychiatry and have disposition determined at that time. If they state that she is not a harm to self then we will discharge the patient home. The patient has decided to sign out AGAINST MEDICAL ADVICE after verbalizing and caitlyn to safety numerous times to numerous healthcare individuals that she is not a harm to self or others. Problems: Code Status Full Code Home Meds Reported Medications Melatonin (Melatonin) 3 Mg Tablet, 3 MG PO HS Y for INSOMNIA 12/05/16 Citalopram Hydrobromide (Citalopram HBr) 40 Mg Tablet, 40 MG PO DAILY 12/05/16 Estrogen,Pema/Me-Testosterone (Eemt Ds 1.25-2.5 mg Tablet) 1 Tab Tablet, 1 TAB PO DAILY 12/05/16 Acyclovir (Acyclovir) 400 Mg Tablet, 400 MG PO DAILY 12/05/16 Zolpidem Tartrate (Zolpidem Tartrate) 10 Mg Tablet, 10 MG PO HS Y for INSOMNIA 12/05/16 Rizatriptan Benzoate (Rizatriptan) 10 Mg Tablet, 10 MG PO TID Y for MIGRAINE HEADACHE 12/05/16 Eszopiclone (Eszopiclone) 3 Mg Tablet, 3 MG PO HS Y for INSOMNIA 12/05/16 Ibuprofen/Diphenhydramine Cit (Advil Pm Caplet) 1 Each Tablet, 1 TAB PO HS Y for INSOMNIA 12/05/16 Lactobacillus Combination No.4 (Probiotic) 1 Each Capsule, 1 CAP PO DAILY 11/08/14 Bupropion HCl (Bupropion Xl) 150 Mg Tab.er.24h, 150 MG PO DAILY 10/24/14 Face to Face Encounter I met with patient on the day of dismissal and discussed follow up appointments , medications, and safety plan. Discharge Disposition Home KARENA GEORGE MD Dec 05, 2016 10:41
== END 2016-12-05 10:30 | disposition left against medical advice (07) | DRG 881 ==
LOC: ED 04:17 → CCU 05:20
PROVIDERS: ADMIT Hospitalist; ATTEND Hospitalist
DX: F32.9 Major depressive disorder, single episode, unspecified (principal); F10.129 Alcohol abuse with intoxication, unspecified; T42.6X2A Poisoning by other antiepileptic and sedative-hypnotic drugs, intentional self-harm, initial encounter; Y92.019 Unspecified place in single-family (private) house as the place of occurrence of the external cause
CPT/HCPCS: 51701; 80053; 80306; 80307; 81003; 83690; 83735; 85025; 93005; 96360

== ENCOUNTER 2016-12-05 18:32 | Emergency (ER) | payer BC ==
[~2016-12-05] VITALS: Ht 162.6 cm; Wt 73.2 kg
[~2016-12-05 18:32] MED LIST changes: +ACYC400T PO; +CITA40TA6 PO; +DULO20CA18 PO; +ESTR1TAB32 PO; +IBUP1TAB79 PO; +RIZA10TA26 PO; +ZOLP10TA6 PO
[2016-12-05 18:34] VITALS: Ht 162.6 cm; Wt 73.2 kg
--- OUTSIDE RECORDS SUMMARY | 2016-12-05 18:36 | XMS REPORT | Continuity of Care Document ---
Author Author [facility] Organization [facility] Address Unknown Phone Unavailable Support Name Relationship Address Phone CLAY THORPE FACS, MD Caregiver [address] [place] [address] [place] [phone] HONEY VO MD Caregiver [address] [place] [address] [place] [phone] MADELINE ORTEGA Next Of Kin [address] [place] [address] Insurance Providers Payer Name Policy Number Subscriber Name Relationship [facility] [id number] Hill Ortega 19 Self Advance Directives Directive [...] F (96.8 - 99.1) Temperature (Calculated Celsius) [phone] degrees C (36.0 - 37.3) Temperature Source [...]
--- OUTSIDE RECORDS SUMMARY | 2016-12-05 18:36 | XMS REPORT | Continuity of Care Document ---
Author Author [facility] Organization [facility] Address Unknown Phone Unavailable Allergies Medications Problems Procedures Results Encounters ACCT No. Visit Date/Time Discharge Status Pt. Type Provider Facility Loc./Unit Complaint [id number] 11/01/2013 14:24:00 11/01/2013 23 :59:59 CLS Outpatient [id number] 07/02/2013 13:28:00 07/02/2013 23 :59:59 CLS Outpatient [id number] 05/29/2013 08:36:00 05/29/2013 23 :59:59 CLS Outpatient
--- OUTSIDE RECORDS SUMMARY | 2016-12-05 18:37 | XMS REPORT | Continuity of Care Document ---
Author Author [facility] Organization [facility] Address Unknown Phone Unavailable Support Name Relationship Address Phone JUAN FONSECA MD Caregiver [address] [place] [address] [place] [address] Unavailable JUAN FONSECA MD Caregiver [address] [place] [address] [place] [address] Unavailable HONEY VO MD Caregiver [address] [place] [address] [place] [address] Unavailable ANDRA CHARLES MD Caregiver [address] [place] [address] [place] [address] Unavailable MADELINE ORTEGA Next Of Kin [address] [place] [address] Insurance Providers Guarantor Hill Ortega Address [address] [place] [address] Email 12-05-16 Payer [facility] Policy Number [id number] Subscriber's Name Hill Ortega Relationship 19 Self Group Number [id number] Advance Directives Directive Response Recorded Date/Time Dr Horan Resuscitation Status Full Code 12/05/16 5:23am Problems Active Problems Medical Problem Onset Date [...] 400 Mg Tablet 400 Mg Oral Daily 12/05/16 Bupropion Hcl (Bupropion Xl) 150 Mg Tab.er.24h 150 Mg Oral Daily 10/24/14 Citalopram Hydrobromide (Citalopram Hbr) 40 Mg Tablet 40 Mg Oral Daily 12/05/16 Estrogen,Pema/Me-Testosterone (Eemt Ds 1.25-2.5 Mg Tablet) 1 Tab Tablet 1 Tab Oral Daily 12/05/16 Eszopiclone 3 Mg Tablet 3 Mg Oral Bedtime as needed for Insomnia 12/05/16 Ibuprofen/Diphenhydramine Cit (Advil Pm Caplet) 1 Each Tablet 1 Tab Oral Bedtime as needed for Insomnia 12/05/16 Lactobacillus Combination No.4 (Probiotic) 1 Each Capsule 1 Cap Oral Daily 11/08/14 Melatonin 3 Mg Tablet 3 Mg Oral Bedtime as needed for Insomnia Rizatriptan Benzoate (Rizatriptan) 10 Mg Tablet 10 Mg Oral Three Times A Day as needed for Migraine Headache 12/05/16 Zolpidem Tartrate 10 Mg Tablet 10 Mg Oral Bedtime as needed for Insomnia 12/05/16 Social History Social History Problem Response Recorded Date/Time Onset Date Status Hx Substance Use No 12/05/2016 4:57am Not Applicable Not Applicable Hx Alcohol Use Yes 12/05/2016 4:57am Not Applicable Not Applicable Has the pt used tobacco in the last 12 months No 12/05/2016 8:14am Not Applicable Not Applicable Query Response Start Date Stop Date Smoking Status Unknown if ever smoked Hospital Discharge Instructions No hospital discharge instructions. Plan of Care Discharge Date 12/05/16 10:30am Disposition 07 AGAINST MEDICAL ADVICE Prescriptions See Medication Section Functional Status Query Response Date Recorded Mobility Status Ambulatory December 05, 2016 6:00am Assistive Devices None December 05, 2016 6:00am Activity Limitations Weakness December 05, 2016 6:00am Feeding Ability Independent December 05, 2016 6:00am Ability to complete ADL's impeded by No change December 05, 2016 6:00am Cognitive/Perceptual Impairments None December 05, 2016 6:00am Allergies, Adverse Reactions, Alerts Allergen Type Severity Reaction Status Last Updated Codeine Adverse Reaction Mild N/V Active 12/05/16 Immunizations Query Response on File Recorded Date/Time Hx Influenza Vaccination Y April 2016 12/05/16 8:14am Hx Pneumococcal Vaccination No 12/05/16 8:14am Hx Influenza Vaccination Y April 2016 12/05/16 8:14am Tdap Vaccine Hx 11/13/15 11/13/15 10:48pm Vital Signs Acute Vital Signs Vital Response Date/Time Temperature (Fahrenheit) 98.5 deg F (96.8 - 99.1) 12/05/2016 8:00am Temperature (Calculated Celsius) 36.77546 degrees C (36.0 - 37.3) 12/05/2016 8:00am Pulse Rate (adult) 79 bpm (60 - 100) 12/05/2016 10:30am Respiratory Rate 20 breaths/min (10 - 20) 12/05/2016 10:30am O2 Sat by Pulse Oximetry 98 % (90 - 100) 12/05/2016 10:30am Oxygen Delivery Method Room Air 12/05/2016 10:30am Blood Pressure 99/57 mm Hg 12/05/2016 8:00am Blood Pressure Source Automatic Cuff 12/05/2016 8:00am Height (Feet) 5 feet 12/05/2016 6:04am Height (Inches) 8.00 inches 12/05/2016 6:04am Weight (Kilograms) 72.800 kg 12/05/2016 8:00am Body Mass Index (BMI) 26.7 12/05/2016 6:00am Results Laboratory Results Test Name Result Units Flags Reference Collection Date/Time Result Date/ Time Comments White Blood Count 5.5 T/MM3 4.5-11.0 12/05/2016 4:36am 12/05/2016 4: 41am Red Blood Count 5.32 M/MM3 H 4.00-5.20 12/05/2016 4:36am 12/05/2016 4: 41am Hemoglobin 16.5 GM/DL H 12-16 12/05/2016 4:36am 12/05/2016 4:41am Hematocrit 49.4 % H 36-46 12/05/2016 4:36am 12/05/2016 4:41am Mean Corpuscular Volume 92.9 UM3 80-100 12/05/2016 4:36am 12/05/2016 4: 41am Mean Corpuscular Hemoglobin 31.0 UUG 26-34 12/05/2016 4:36am 2016 4:41am Mean Corpuscular Hemoglobin Concent 33.4 GM/DL 31-37 12/05/2016 4:36am 12/05/2016 4:41am RDW Standard Deviation 45.7 FL 36.9-50.2 12/05/2016 4:36am 12/05/2016 4 :41am Platelet Count 226 T/MM3 130-400 12/05/2016 4:36am 12/05/2016 4:41am Mean Platelet Volume 10.7 UM3 9.4-12.4 12/05/2016 4:12/05/2016 4: 41am Neutrophils (%) (Auto) 39.8 % 33-66 12/05/2016 4:3612/05/2016 4: 41am Lymphocytes (%) (Auto) 47.9 % H 23-45 12/05/2016 4:12/05/2016 4: 41am Monocytes (%) (Auto) 7.7 % 0-9.0 12/05/2016 4:12/05/2016 4:41am Eosinophils (%) (Auto) 3.5 % 0-4 12/05/2016 4:12/05/2016 4:41am Basophils (%) (Auto) 0.9 % 0-2 12/05/2016 4:12/05/2016 4:41am Immature Granulocyte % (Auto) 0.2 % 0.0-0.5 12/05/2016 4:2016 4:41am Absolute Neutrophils (auto) 2.2 T/MM3 1.8-7.7 12/05/2016 4:2016 4:41am Absolute Lymphocytes (auto) 2.6 T/MM3 1-4.8 12/05/2016 4:2016 4:41am Absolute Monocytes (auto) 0.4 T/MM3 0-0.8 12/05/2016 4:12/05/2016 4:41am Absolute Eosinophils (auto) 0.2 T/MM3 0-0.5 12/05/2016 4:2016 4:41am Absolute Basophils (auto) 0.1 T/MM3 0-0.2 12/05/2016 4:12/05/2016 4:41am Absolute Immature Granulocyte (auto 0.01 T/MM3 0.00-0.03 12/05/2016 4: 12/05/2016 4:41am Icterus Index < 2 0-7 12/05/2016 4:12/05/2016 4:58am Chemistry Specimen Hemolysis < 15 0-25 12/05/2016 4:12/05/2016 4 :58am 0-25: Specimen Exhibited No Hemolysis. Turbidity < 20 0-20 12/05/2016 4:12/05/2016 4:58am Sodium Level 148 MEQ/L H 134-144 12/05/2016 4:3612/05/2016 4:58am Potassium Level 3.8 MEQ/L 3.6-5 12/05/2016 4:3612/05/2016 4:58am Chloride Level 105 MEQ/L 98-107 12/05/2016 4:3612/05/2016 4:58am Carbon Dioxide Level 25 MEQ/L 22-30 12/05/2016 4:3612/05/2016 4: 58am Anion Gap 18 MEQ/L H 5-15 12/05/2016 4:3612/05/2016 4:58am Blood Urea Nitrogen 4.0 MG/DL L 7-17 12/05/2016 4:3612/05/2016 4: 58am Creatinine 0.8 MG/DL 0.7-1.2 12/05/2016 4:3612/05/2016 4:58am BUN/Creatinine Ratio 5 RATIO L 6-12/05/2016 4:3612/05/2016 4:58am Glomerular Filtration Rate Calc 76 12/05/2016 4:3612/05/2016 4: 58am Glucose Level 80 MG/DL 65-110 12/05/2016 4:3612/05/2016 4:58am Calculated Osmolality 280 MOSM/KG 261-280 12/05/2016 4:3612/05/2016 4:58am Calcium Level 9.2 MG/DL 8.4-10.2 12/05/2016 4:3612/05/2016 4:58am Total Bilirubin 0.70 MG/DL 0.20-1.30 12/05/2016 4:3612/05/2016 4: 58am Alkaline Phosphatase 66 U/L 38-126 12/05/2016 4:3612/05/2016 4:58am Total Protein 8.0 G/DL 6.3-8.2 12/05/2016 4:3612/05/2016 4:58am Albumin 4.8 G/DL 3.5-5.0 12/05/2016 4:3612/05/2016 4:58am Globulin 3.2 G/DL 2.4-3.6 12/05/2016 4:3612/05/2016 4:58am Albumin/Globulin Ratio 1.5 RATIO 1.1-2.2 12/05/2016 4:36am 12/05/2016 4 :58am Aspartate Amino Transf (AST/SGOT) 37 U/L H 14-36 12/05/2016 4:36am 12/05 4:58am Alanine Aminotransferase (ALT/SGPT) 48 U/L 9-52 12/05/2016 4:36am 12/05 4:58am Lipase 107 U/L 23-300 12/05/2016 4:36am 12/05/2016 5:11am Magnesium Level 2.3 MG/DL 1.6-2.3 12/05/2016 4:36am 12/05/2016 4:58am Acetaminophen Level < 10 UG/ML L 10-12/05/2016 4:3612/05/2016 4: 58am TOXIC <4 HR POST INGESTION: >150 MG/L; TOXIC <12 HR POST INGESTION: >50 MG/L Salicylates Level < 1.0 MG/DL L 2-20 12/05/2016 4:3612/05/2016 4: 58am Alcohol, Quantitative 177 MG/DL <10 12/05/2016 4:36am 12/05/2016 4: 58am Urine Collection Type VOIDED-NOT CC-MIDSTR 12/05/2016 4:362016 4:54am Urine Color YELLOW YELLOW 12/05/2016 4:36am 12/05/2016 4:54am Urine Turbidity CLEAR CLEAR 12/05/2016 4:36am 12/05/2016 4:54am Urine Specific Martha <=1.005 L 1.015-1.025 12/05/2016 4:362016 4:54am Urine pH 5.5 5.0-8.0 12/05/2016 4:36am 12/05/2016 4:54am Urine Leukocyte Esterase NEGATIVE NEGATIVE 12/05/2016 4:36am 2016 4:54am Urine Nitrite NEGATIVE NEGATIVE 12/05/2016 4:36am 12/05/2016 4:54am Urine Protein NEGATIVE NEGATIVE 12/05/2016 4:36am 12/05/2016 4:54am Urine Glucose (UA) NEGATIVE NEGATIVE 12/05/2016 4:36am 12/05/2016 4: 54am Urine Ketones NEGATIVE NEGATIVE 12/05/2016 4:36am 12/05/2016 4:54am Urine Urobilinogen 0.2 EU/DL NORMAL 12/05/2016 4:36am 12/05/2016 4: 54am Urine Bilirubin NEGATIVE NEGATIVE 12/05/2016 4:36am 12/05/2016 4: 54am Urine Blood NEGATIVE NEGATIVE 12/05/2016 4:36am 12/05/2016 4:54am Urinalysis Comment MICROSCOPIC NOT IND. 12/05/2016 4:36am 2016 4:54am Name: HILL ORTEGA Unit #: [id number] : 1965 Sex: F DISCHARGE SUMMARY Admit Date: 12/05/16 Report #: [id number] [facility] General Date Date DATE: 12/05/16 TIME: 10:39 Attending Physician Karena Sanabria Admitting Physician Juan Fonseca MD Consulting Physician Admitting Diagnosis suicide attempt, encephalopathy, Discharge Diagnosis Depression. Laboratory Laboratory Tests Test 12/05/16 04:36 12/05/16 05:58 White Blood Count 5.5T/MM3 (4.5-11.0) Red Blood Count 5.32M/MM3 (4.00-5.20) Hemoglobin 16.5GM/DL (12-16) Hematocrit 49.4% (36-46) Mean Corpuscular Volume 92.9UM3 (80-100) Mean Corpuscular Hemoglobin 31.0UUG (26-34) Mean Corpuscular Hemoglobin Concent 33.4GM/DL (31-37) RDW Standard Deviation 45.7FL (36.9-50.2) Platelet Count 226T/MM3 (130-400) Mean Platelet Volume 10.7UM3 (9.4-12.4) Immature Granulocyte % (Auto) 0.2% (0.0-0.5) Neutrophils (%) (Auto) 39.8% (33-66) Lymphocytes (%) (Auto) 47.9% (23-45) Monocytes (%) (Auto) 7.7% (0-9.0) Eosinophils (%) (Auto) 3.5% (0-4) Basophils (%) (Auto) 0.9% (0-2) Absolute Immature Granulocyte (auto 0.01T/MM3 (0.00-0.03) Absolute Neutrophils (auto) 2.2T/MM3 (1.8-7.7) Absolute Lymphocytes (auto) 2.6T/MM3 (1-4.8) Absolute Monocytes (auto) 0.4T/MM3 (0-0.8) Absolute Eosinophils (auto) 0.2T/MM3 (0-0.5) Absolute Basophils (auto) 0.1T/MM3 (0-0.2) Urine Collection Type Voided-not cc-midstr Urine Color Yellow (YELLOW) Urine Turbidity Clear (CLEAR) Urine pH 5.5 (5.0-8.0) Urine Specific Martha <=1.005 (1.015-1.025) Urine Protein Negative (NEGATIVE) Urine Glucose (UA) Negative (NEGATIVE) Urine Ketones Negative (NEGATIVE) Urine Blood Negative (NEGATIVE) Urine Nitrite Negative (NEGATIVE) Urine Bilirubin Negative (NEGATIVE) Urine Urobilinogen 0.2EU/DL (NORMAL) Urine Leukocyte Esterase Negative (NEGATIVE) Urinalysis Comment Microscopic not ind. Turbidity < 20 (0-20) Sodium Level 148MEQ/L (134-144) Potassium Level 3.8MEQ/L (3.6-5) Chloride Level 105MEQ/L (98-107) Carbon Dioxide Level 25MEQ/L (22-30) Anion Gap 18MEQ/L (5-15) Blood Urea Nitrogen 4.0MG/DL (7-17) Creatinine 0.8MG/DL (0.7-1.2) Glomerular Filtration Rate Calc 76 BUN/Creatinine Ratio 5RATIO (6-26) Glucose Level 80MG/DL (65-110) Calculated Osmolality 280MOSM/KG (261-280) Calcium Level 9.2MG/DL (8.4-10.2) Magnesium Level 2.3MG/DL (1.6-2.3) Total Bilirubin 0.70MG/DL (0.20-1.30) Icterus Index < 2 (0-7) Aspartate Amino Transf (AST/SGOT) 37U/L (14-36) Alanine Aminotransferase (ALT/SGPT) 48U/L (9-52) Alkaline Phosphatase 66U/L (38-126) Total Protein 8.0G/DL (6.3-8.2) Albumin 4.8G/DL (3.5-5.0) Globulin 3.2G/DL (2.4-3.6) Albumin/Globulin Ratio 1.5RATIO (1.1-2.2) Lipase 107U/L (23-300) Chemistry Specimen Hemolysis < 15 (0-25) Salicylates Level < 1.0MG/DL (2-20) Urine Opiates Screen NegativeNG/ML Urine Oxycodone Screen NegativeNG/ML Urine Methadone Screen NegativeNG/ML Urine Propoxyphene Screen NegativeNG/ML Acetaminophen Level < 10UG/ML (10-30) Urine Barbiturates Screen NegativeNG/ML Urine Tricyclic Antidepressants NegativeNG/ML Urine Phencyclidine Screen NegativeNG/ML Urine Amphetamines Screen NegativeNG/ML Urine Methamphetamines Screen NegativeNG/ML Urine Benzodiazepines Screen NegativeNG/ML Urine Cocaine Screen NegativeNG/ML Urine Cannabinoids Screen NegativeNG/ML Alcohol, Quantitative 177MG/DL (<10) Lab Scanned Report REFERENCE [id number] History of Present Illness This is a 51-year-old female with a known history of depression. The patient has a long-standing history of alcohol abuse. The patient apparently was last admitted in May 2016 for a overdose of Ambien and/or Lunesta. The patient apparently got into an argument with her . He walked out. The sister contact the patient later on and found that she was less responsive. [facility] [place] was activated and evaluated the patient and activated EMS. The patient was transported to the emergency department for evaluation. It is not clear the exact time the patient adjusted the medication, but most likely less than 3 hours prior to arrival. The patient apparently has access to Lunesta and Ambien. There is a chance the patient took up to 10 tablets of Ambien and 5 tablets of Lunesta. The patient has been drinking today. In the emergency department the patients assessment was unremarkable. The patient is to be admitted to the ICU for medical stabilization prior to assessing need for psychiatric placement. Hospital Course This is a 51-year-old female admitted to the hospital overnight for potential overdose on Ambien and Lunesta along with alcohol. Patient was seen and has no recollection of the event question. She does adamantly deny any suicidal ideations or attempts. When the events of last night were relayed to the patient, she states that her was in [place] and therefore couldn't have walked out on her. She states that the last thing remembers is talking to her friend Clarisse and saying that they need to go out sometime soon. Once again she denied any suicidal, homicidal ideations. She denies any audio, visual or tactile hallucinations. She states that she sees a therapist in [place] and does not want to see anybody here. States that she takes her medications as prescribed. The plan is to have the patient evaluated by psychiatry and have disposition determined at that time. If they state that she is not a harm to self then we will discharge the patient home. The patient has decided to sign out AGAINST MEDICAL ADVICE after verbalizing and caitlyn to safety numerous times to numerous healthcare individuals that she is not a harm to self or others. Problems: Code Status Full Code Home Meds Reported Medications Melatonin (Melatonin) 3 Mg Tablet, 3 MG PO HS Y for INSOMNIA 12/05/16 Citalopram Hydrobromide (Citalopram HBr) 40 Mg Tablet, 40 MG PO DAILY 12/05/16 Estrogen,Pema/Me-Testosterone (Eemt Ds 1.25-2.5 mg Tablet) 1 Tab Tablet, 1 TAB PO DAILY 12/05/16 Acyclovir (Acyclovir) 400 Mg Tablet, 400 MG PO DAILY 12/05/16 Zolpidem Tartrate (Zolpidem Tartrate) 10 Mg Tablet, 10 MG PO HS Y for INSOMNIA 12/05/16 Rizatriptan Benzoate (Rizatriptan) 10 Mg Tablet, 10 MG PO TID Y for MIGRAINE HEADACHE 12/05/16 Eszopiclone (Eszopiclone) 3 Mg Tablet, 3 MG PO HS Y for INSOMNIA 12/05/16 Ibuprofen/Diphenhydramine Cit (Advil Pm Caplet) 1 Each Tablet, 1 TAB PO HS Y for INSOMNIA 12/05/16 Lactobacillus Combination No.4 (Probiotic) 1 Each Capsule, 1 CAP PO DAILY 11/08/14 Bupropion HCl (Bupropion Xl) 150 Mg Tab.er.24h, 150 MG PO DAILY 10/24/14 Face to Face Encounter I met with patient on the day of dismissal and discussed follow up appointments , medications, and safety plan. Discharge Disposition Home KARENA SANABRIA MD Dec 05, 2016 10:41 Procedures No known history of procedures. Encounters Encounter Location Arrival/Admit Date Discharge/Depart Date Attending Provider Discharged Inpatient [facility] 12/05/16 5:20am 12/05/16 10:30am JUAN FONSECA MD
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
--- OUTSIDE RECORDS SUMMARY | 2016-12-05 18:43 | XMS REPORT | Continuity of Care Document ---
Author Author [facility] Organization [facility] Address Unknown Phone Unavailable Support Name Relationship Address Phone CLAY THORPE FACS, MD Caregiver [address] [place] [address] [place] [phone] HONEY VO MD Caregiver [address] [place] [address] [place] [phone] MADELINE ORTEGA Next Of Kin [address] [place] [address] Insurance Providers Payer Name Policy Number Subscriber Name Relationship [facility] [id number] Hill Ortega 19 Self Advance Directives Directive [...] F (96.8 - 99.1) Temperature (Calculated Celsius) [phone] degrees C (36.0 - 37.3) Temperature Source [...]
--- OUTSIDE RECORDS SUMMARY | 2016-12-05 18:43 | XMS REPORT | Continuity of Care Document ---
Author Author [facility] Organization [facility] Address Unknown Phone Unavailable Allergies Medications Problems Procedures Results Encounters ACCT No. Visit Date/Time Discharge Status Pt. Type Provider Facility Loc./Unit Complaint [id number] 11/01/2013 14:24:00 11/01/2013 23 :59:59 [facility] Outpatient [id number] 07/02/2013 13:28:00 07/02/2013 23 :59:59 CLS Outpatient [id number] 05/29/2013 08:36:00 05/29/2013 23 :59:59 CLS Outpatient
[2016-12-05] MEDS ORDERED: LIDOCAINE 1% (10mg/ml) 30ml SDV INFIL ONE (18:45)
[2016-12-05] MEDS ORDERED: LIDOCAINE 1%/EPI 1:100,000 20ml MDV SQ ONE (18:45)
--- NOTE | 2016-12-05 18:47 | NUR ---
PROVIDER Juaquin LEÓN MATCH UP WORKER IN TO SUTURE LACERATION.
--- NOTE | 2016-12-05 18:47 | NUR ---
FAMILY THIS RN TALKED TO OF PATIENT AND EDUCATED ON POC AND THAT PER DOCTOR, IT WOULD BE BEST TO WAIT IN LOBBY.
--- NOTE | 2016-12-05 19:05 | NUR ---
VISITOR DOOR CORE ASSEMBLER BRINGS TO ROOM. PT HESTIANTLY SAYS YES. NURSE ADVISED PT THAT VISITOR DOES NOT HAVE TO STAY. PT STATES "IT IS OKAY."
--- NOTE | 2016-12-05 19:16 | NUR ---
LAB IN ROOM
--- NOTE | 2016-12-05 19:22 | NUR ---
JOSE CA IN WITH PT
[2016-12-05 19:27] LABS: BASOPHILS # (AUTO) 0.1 T/MM3 (0-0.2); BASOPHILS % (AUTO) 1.1 % (0-2); EOSINOPHILS # (AUTO) 0.2 T/MM3 (0-0.5); EOSINOPHILS % (AUTO) 2.4 % (0-4); HCT - HEMATOCRIT 42.4 % (36-46); HGB - HEMOGLOBIN 14.3 GM/DL (12-16); IMMATURE GRANULOCYTE # (AUTO) 0.01 T/MM3 (0.00-0.03); IMMATURE GRANULOCYTE % (AUTO) 0.1 % (0.0-0.5); LYMPHOCYTES % (AUTO) 26.9 % (23-45); MEAN CORPUSCULAR HGB 31.5 UUG (26-34); MEAN CORPUSCULAR HGB CONC(MCHC 33.7 GM/DL (31-37); MEAN CORPUSCULAR VOLUME 93.4 UM3 (80-100); MEAN PLATELET VOLUME 10.3 UM3 (9.4-12.4); MONOCYTES # (AUTO) 0.5 T/MM3 (0-0.8); MONOCYTES % (AUTO) 6.8 % (0-9.0); NEUTROPHILS #(AUTO)-ABSOLUTE 4.6 T/MM3 (1.8-7.7); NEUTROPHILS % (AUTO) 62.7 % (33-66); RED BLOOD COUNT 4.54 M/MM3 (4.00-5.20); WBC - WHITE BLOOD COUNT 7.4 T/MM3 (4.5-11.0)
--- NOTE | 2016-12-05 19:35 | NUR ---
STATUS PT RESTING IN BED. FRIENDS AT BEDSIDE.
[2016-12-05 19:36] LABS: ACETAMINOPHEN < 10 UG/ML (10-30); ANION GAP 16 MEQ/L (5-15); BUN/CREATININE RATIO 8 RATIO (6-26); CALCIUM 8.5 MG/DL (8.4-10.2); CHLORIDE 103 MEQ/L (98-107); CO2 - CARBON DIOXIDE 21 MEQ/L (22-30); CREATININE 0.8 MG/DL (0.7-1.2); ETHANOL 148 MG/DL (<10); GLOMERULAR FILTRATION RATE 76; GLUCOSE 77 MG/DL (65-110); POTASSIUM 3.7 MEQ/L (3.6-5); SALICYLATE < 1.0 MG/DL (2-20); SODIUM 140 MEQ/L (134-144)
--- NOTE | 2016-12-05 20:16 | NUR ---
ELIMINATION PT AMBULATES TO BATHROOM WITH STAND BY ASSIST. ALSO PT ASKED TO SPEAK TO JOSE CA ABOUT RECONSIDERING TRAVELING TO [place] FOR HAND SURGERY CONSULT. JOSE CA ADVISED OF THIS
--- NOTE | 2016-12-05 20:20 | NUR ---
STATUS PT REQUESTS RETURN TO ROOM. TAKEN TO PTS ROOM
--- NOTE | 2016-12-05 20:31 | NUR ---
JOSE CA IN WITH PT
--- NOTE | 2016-12-05 21:35 | NUR ---
STATUS PT HAS LEFT TO GO GET SOMETHING FROM HOME. SEVERAL MINUTES LATER THE PT WENT TO THE REGISTRATION DESK AND TOLD THEM SHE WANTS TO TALK WITH THE ANDMINISTRATOR ON-CALL. SHE TELLS STAFF THAT THERE HAS TO BE MORE THAN ONE PLACE SHE CAN BE AT AND HOW CAN WE SAY THAT THIS PLACE WON'T TAKE HER OR THAT PLACE WON'T TAKE HER. EXPLAINED TO THE PT THAT THIS IS FEDERAL LAW THAT WE KEEP HER HERE FOR HER SAFEY. WE HAVE NO CONTROL IF [facility] NO OPEN BEDS FOR HER. THERE ARE TIMES THAT A PATIENT HAS TO STAY IN THE ED FOR DAYS WAITING FOR A ROOM TO OPEN SOMEWHERE. THIS IS NO A HOSPITAL POLICY THIS IS FEDERAL AND DONE THIS WAY ALL IN ALL THE ED'S. SHE STATES THAT SHE IS COLD, HUNGRY AND IN PAIN FROM HER WRIST. PT INFORMED WE CAN GIVE HER BLANKET, FOOD AND I CAN ASK FOR SOME TYLENOL OR IBUPROFEN FOR HER PAIN. SHE REPLIES THAT THAT WOULDN'T HELP HER PAIN, NOT STRONG ENOUGH. PT ALSO INFORMED THAT IF SHE LEAVES WE ARE OBLIGATED TO CALL POLICE TO BRING HER BACK. PT STATES "I'M SURE THEY HAVE MORE IMPORTANT THINGS TO DO THAN THAT". PT DID THEN RETURN TO HER ROOM.
--- NOTE | 2016-12-05 21:40 | NUR ---
STATUS PT OFFERED BLANKET, FOOD, AND OFFERED TO REQUEST PAIN MEDICATION FOR L WRIST.
--- NOTE | 2016-12-05 21:44 | NUR ---
COMFORT PT OFFERED WARM BLANKETS, FOOD AND SOMETHING FOR HER WRIST/HAND PAIN PT IGNORING STAFF WITH THIS OFFER
--- NOTE | 2016-12-05 21:44 | NUR ---
STATUS PT DOES NOT ANSWER THE QUESTIONS OF BLANKET OR FOOD OR PAIN MEDIATIONS.
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
--- NOTE | 2016-12-05 21:53 | NUR ---
STATUS IN ROOM WITH PT. PT STATES THAT SHE DOES NOT WANT TO GO TO [facility]. ADVISED PT THAT SHE SHOULD LOOK OVER PAPERWORK AND THEN DECIDE. ADVISED THAT SHE WOULD HAVE TO GO SOMEWHERE AND THAT [facility] WOULD BE A BETTER FIT FOR HER THAN ANOTHER FACILITY. PT ASKS IF [facility] WOULD BE ABLE TO CHECK HER WIRST. EXPLAINED THAT SHE WAS GOING TO THE HOSPITAL THERE TO THE PSYCH FLOOR BUT THEY ALSO HAVE ORTHOS THERE THAT CAN ADDRESS HER HAND. ASKED PT AGAIN IF SHE NEEDED BLANKET, FOOD OR PAIN MEDICATION AND PT DID AGREE TO BLANKETS AND PAIN MEDICATION. BLANKET PROVIDED AND JOSE LEÓN APRN ADVISED THAT PT WOULD LIKE PAIN MEDICAITON.
--- NOTE | 2016-12-05 22:07 | NUR ---
PHYSICIAN JOSE LEÓN PLAQUE MAKER IN WITH PT
[2016-12-05] MEDS ORDERED: IBUPROFEN 800 MG TABLET PO ONE (22:15)
--- NOTE | 2016-12-05 22:22 | NUR ---
STATUS [facility] TAKES IBUPROFEN WITH WATER. PT MORE RELAXED WITH IN THE ROOM. L WRIST UNCOVERED AT THIS TIME.
--- NOTE | 2016-12-05 22:35 | NUR ---
TRANSFER TALKED WITH PT RE LEAVING AMA AT [facility]. ADVISED IF SHE SIGNED AMA PAPERS THERE SHE WOULD BECOME INVOLUNTARY AND PT COULD BE TRANSFERED TO [facility]. PT VOICES UNDERSTANDING AND AGREES TO STAY AT [facility] WITHOUT AMA.
--- NOTE | 2016-12-05 22:40 | NUR ---
STATUS PT UP TO BATHROOM. PT BACK TO ROOM. REMAINS PRESENT.
--- NOTE | 2016-12-05 22:45 | NUR ---
TRANSFER PAPERWORK FAXED TO [facility].
--- NOTE | 2016-12-05 22:50 | NUR ---
REPORT GIVEN TO ROCIO ALLRED AT [facility].
--- NOTE | 2016-12-05 23:00 | NUR ---
TRANSFER APS NOTIFIED OF NEED FOR TRANSPORT. APS STATES THAT ARRIVAL TIME IS APPROX 30 MINUTES. ADVISED PT AND OF THIS.
--- NOTE | 2016-12-05 23:53 | NUR ---
DRESSING CHANGED DRESSING TELFA, GAUZE AND COBAN APPLIED
[2016-12-05 23:54] VITALS: BP 127/85; PULSE 72; RESP 16; TEMP 98.2; O2SAT 97
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
[2016-12-06] MEDS ORDERED: ACETAMINOPHEN 325 MG TABLET PO ONE
== END 2016-12-05 23:54 ==
LOC: ED 18:32
DX: S61.512A Laceration without foreign body of left wrist, initial encounter (principal); R20.0 Anesthesia of skin; X78.1XXA Intentional self-harm by knife, initial encounter; Y93.89 Activity, other specified; Y92.009 Unspecified place in unspecified non-institutional (private) residence as the place of occurrence of the external cause; Y99.8 Other external cause status
CPT/HCPCS: 36415; 80048; 80307; 85025